=== PATIENT | male | born 1985 ===

== ENCOUNTER 2017-03-05 15:48 | Inpatient (IN) | payer OTHER ==
[2017-03-05] MEDS ORDERED: Sodium Chloride 0.9% 1,000 ML IV STA ×2 (16:23→17:26)
--- NOTE | 2017-03-05 16:39 | ED PDOC ---
HPI: General Adult Time Seen by Provider: 03/05/17 16:05 Chief Complaint (Nursing): Flu-like Symptoms Chief Complaint (Provider): Fever History Per: Patient History/Exam Limitations: no limitations Onset/Duration Of Symptoms: Intermittent Episodes (3 weeks) Current Symptoms Are (Timing): Still Present Additional Complaint(s): Yusef Doshi is a 31 y/o male, with no past medical history, presenting to the ER on 03/05/2017 with complaints of an intermittent fever for three weeks associated with a productive cough that produces yellow sputum. Patient states these two symptoms have not resolved despite taking Advil. He also reports having myalgias, fatigue, and throat pain last week which all have resolved on its own. Patient is also complaining of upper back pain when he takes deep breaths. He denies any recent travel, known history of tuberculosis, or any possible exposure to tuberculosis in the past. Past Medical History Reviewed: Historical Data, Nursing Documentation, Vital Signs Vital Signs: Last Vital Signs Temp 99.3 F 03/05/17 17:40 Pulse 88 03/05/17 17:28 Resp 18 03/05/17 15:58 BP 152/87 H 03/05/17 15:58 Pulse Ox 98 03/05/17 17:28 - Medical History PMH: No Chronic Diseases - Surgical History Surgical History: No Surg Hx - Family History Family History: States: Unknown Family Hx - Social History Current smoker - smoking cessation education provided: No Alcohol: None Drugs: Denies - Home Medications Home Medications: Ambulatory Orders Medication Instructions Recorded No Known Home Med 03/05/17 - Allergies Allergies/Adverse Reactions: Allergies Allergy/AdvReac Type Severity Reaction Status Date / Time No Known Allergies Allergy Verified 03/05/17 15:57 Review of Systems ROS Statement: Except As Marked, All Systems Reviewed And Found Negative Constitutional: Positive for: Fever, Other ((+) myalgias ; (+) fatigue ) ENT: Positive for: Throat Pain Respiratory: Positive for: Cough, Sputum Musculoskeletal: Positive for: Back Pain Neurological: Negative for: Weakness, Numbness Physical Exam - Reviewed Nursing Documentation Reviewed: Yes Vital Signs Reviewed: Yes - Physical Exam Appears: Positive for: Non-toxic, No Acute Distress Head Exam: Positive for: ATRAUMATIC, NORMOCEPHALIC Skin: Positive for: Normal Color. Negative for: Rash Eye Exam: Positive for: Normal appearance, EOMI, PERRL ENT: Positive for: Normal ENT Inspection, Pharynx Is (clear), TM Is/Are (normal ). Negative for: Pharyngeal Erythema Neck: Positive for: Normal, Painless ROM, Supple Cardiovascular/Chest: Positive for: Tachycardia Respiratory: Positive for: Normal Breath Sounds. Negative for: Respiratory Distress Gastrointestinal/Abdominal: Positive for: Normal Exam, Soft. Negative for: Tenderness Extremity: Positive for: Normal ROM. Negative for: Deformity, Swelling Neurologic/Psych: Positive for: Alert, Oriented. Negative for: Motor/Sensory Deficits - Laboratory Results Result Diagrams: 03/05/17 16:20 03/05/17 16:20 - ECG ECG: Positive for: Interpreted By Me, Viewed By Me ECG Rhythm: Positive for: Normal QRS, Normal ST Segment, Sinus Rhythm. Negative for: Nonspecific Changes Rate: 88 O2 Sat by Pulse Oximetry: 98 - Radiology X-Ray: Viewed By Me, Read By Radiologist X-Ray Interpretation: No Acute Disease Medical Decision Making Medical Decision Makin:05 Initial Impression- Respiratory Infection. Differential diagnosis includes but not limited to: PNA, Bronchitis, or Influenza Initial Plan- * VBG * EKG * CMP * Tylenol 650 mg PO * Toradol 30 mg IVP * Sodium Chloride 1,000 ml IV * Blood Cx * Influenza AB Documented by José Antonio Palafox, acting as a scribe for Michaelle Rob MD. All medical record entries made by the Scribe were at my direction and personally dictated by me. I have reviewed the chart and agree that the record accurately reflects my personal performance of the history, physical exam, medical decision making, and the department course for this patient. I have also personally directed, reviewed, and agree with the discharge instructions and disposition. Disposition - Clinical Impression Clinical Impression: Pneumonia, Influenza-like symptoms, Severe sepsis - Patient ED Disposition Is Patient to be Admitted: Yes Discussed With : Rashawn Gracia Doctor Will See Patient In The: ED Counseled Patient/Family Regarding: Studies Performed, Diagnosis - Disposition Disposition Time: 18:00 Condition: FAIR - Pt Status Changed To: Hospital Disposition Of: Inpatient - Admit Certification Admit to Inpatient:: After my assessment, the patient will require hospitalization for at least two midnights. This is because of the severity of symptoms shown, intensity of services needed, and/or the medical risk in this patient being treated as an outpatient. - POA Present On Arrival: Poor Glycemic Control
[2017-03-05 17:15] LABS: BASO # 0.2 K/uL (0.0-0.2); EOS % 0.1 % (0.0-4.0); LYMPH # 21.9 K/uL (1.0-4.3); LYMPH % 94.5 % (20.0-40.0); MEAN CELL VOLUME 90.1 fl (80.0-94.0); MEAN CORPUSCULAR HGB CONC 33.3 g/dL (33.0-37.0); MEAN PLATELET VOLUME 9.1 fl (7.2-11.7); MONO # 0.2 K/uL (0.0-0.8); MONO % 1.1 % (0.0-10.0); NEUT # 0.8 K/uL (1.8-7.0); NEUT % 3.3 % (50.0-75.0); NRBC % 0.5 % (0.0-0.0); PLATELET COUNT 62 K/uL (130-400); RBC 3.99 Mil/uL (4.40-5.90); RED CELL DISTRIBUTION WIDTH 14.7 % (11.5-14.5); WHITE BLOOD COUNT 23.2 K/uL (4.8-10.8)
[2017-03-05 17:15] LABS: VENOUS BLOOD GAS BASE EXCESS 2.7 mmol/L (0.0-2.0); VENOUS BLOOD GAS PCO2 44 mmHg (40-60); VENOUS BLOOD GAS PO2 31 mm/Hg (30-55); VENOUS BLOOD PH 7.41 (7.32-7.43)
[2017-03-05] MEDS ORDERED: Insulin Regular 100 units/ml IV STA (17:23)
[2017-03-05] MEDS ORDERED: Azithromycin 500 MG in Sodium Chloride 0.9% 250 ML IVPB STA (17:25)
--- NOTE | 2017-03-05 17:26 | RAD ---
HISTORY: Chest pain COMPARISON: No prior. TECHNIQUE: Chest PA and lateral FINDINGS: LUNGS: The lungs are clear. PLEURA: No significant pleural effusion identified. No pneumothorax apparent. CARDIOVASCULAR: Normal. OSSEOUS STRUCTURES: No significant abnormalities. VISUALIZED UPPER ABDOMEN: Normal. OTHER FINDINGS: None. IMPRESSION: No active pulmonary disease.
[2017-03-05 17:31] LABS: ALB/GLOB RATIO 1.1 (1.0-2.1); ALBUMIN 3.8 g/dL (3.5-5.0); ALT/SGPT 169 U/L (21-72); AST/SGOT 94 U/L (17-59); BLOOD UREA NITROGEN 10 mg/dl (9-20); CALCIUM 8.8 mg/dL (8.4-10.2); GFR AFRICAN-AMERICAN > 60; GFR NON-AFRICAN AMERICAN > 60
[2017-03-05] MEDS ORDERED: cefTRIAXone (Rocephin) 1 gm Inj ONE (17:31)
[2017-03-05 18:05] LABS: ABG ALLEN TEST YES; ARTERIAL BLOOD GAS HCO3 27.2 mmol/L (21-28); ARTERIAL BLOOD GAS HEMOGLOBIN 10.8 g/dL (11.7-17.4); ARTERIAL BLOOD GAS O2 CAPACITY 14.7 mL/dL (16-24); ARTERIAL BLOOD GAS O2 CONTENT 14.5 ML/dL (15-23); ARTERIAL BLOOD GAS O2 SAT 98.4 % (95-98); ARTERIAL BLOOD GAS PCO2 38 mm/Hg (35-45); ARTERIAL BLOOD GAS PH 7.46 (7.35-7.45); ARTERIAL BLOOD GAS PO2 76 mm/Hg (80-100); ARTERIAL BLOOD GAS TCO2 28.2 mmol/L (22-28)
[2017-03-05] MEDS ORDERED: Insulin Regular 100 units/ml ONE (18:23)
[2017-03-05 18:28] LABS: TOTAL CELLS COUNTED 100
[2017-03-05] MEDS ORDERED: Sodium Chloride 3% for Inhalation 4 ML VIAL.NEB IH PRN (18:28)
[2017-03-05 18:29] LABS: LYMPHOCYTE 63 % (20-50); MONOCYTE 2 % (0-10); NEUTROPHIL 5 % (42-75); REACTIVE LYMPHOCYTES 30 % (0-0)
[2017-03-05 18:30] LABS: ANISOCYTOSIS SLIGHT; PLATELET ESTIMATE MARKEDLY DECREASED (NORMAL); POLYCHROMIC SLIGHT
[2017-03-05 18:31] LABS: SMUDGE CELLS PRESENT
--- NOTE | 2017-03-05 18:50 | CP.PCM.HP ---
History of Present Illness - History of Present Illness History of Present Illness: 31 yo male with no significant PMH came in because of on and off fever since 3 weeks ago accompanied with body malaise and coughing productive with greenish sputum. Saw a PCP a week ago and was started on antibiotics which he took twice a day. He was only able to take the antibiotic for 4 days but stopped it since he was not getting any better and it did not agree with his stomach. His condition did not improved so he decided to seek consultation in the ER. Also admitted urinating a lot and drinking a lot recently. Denied dysuria, abdominal pain, nausea or vomiting. Present on Admission - Present on Admission Any Indicators Present on Admission: No History of DVT/PE: No History of Uncontrolled Diabetes: No Urinary Catheter: No Decubitus Ulcer Present: No Review of Systems - Review of Systems All systems: reviewed and no additional remarkable complaints except (aside from those mentioned above, 12 point system review were negative by me) Past Patient History - Tetanus Immunizations Tetanus Immunization: Unknown - Past Medical History & Family History Past Medical History?: No Pertinent Family History: mother has DM2 - Past Social History Smoking Status: Never Smoked Alcohol: None Drugs: Denies Home Situation {Lives}: With Family - CARDIAC Hx Cardiac Disorders: No - PULMONARY Hx Respiratory Disorders: No - NEUROLOGICAL Hx Neurological Disorder: No - HEENT Hx HEENT Problems: No - RENAL Hx Chronic Kidney Disease: No - ENDOCRINE/METABOLIC Hx Endocrine Disorders: No - HEMATOLOGICAL/ONCOLOGICAL Hx Blood Disorders: No - INTEGUMENTARY Hx Dermatological Problems: Yes Other/Comment: FUNGAL/BACTERIAL SKIN INFECTION - MUSCULOSKELETAL/RHEUMATOLOGICAL Hx Musculoskeletal Disorders: No - GASTROINTESTINAL Hx Gastrointestinal Disorders: No - GENITOURINARY/GYNECOLOGICAL Hx Genitourinary Disorders: No - PSYCHIATRIC Hx Psychophysiologic Disorder: No Hx Substance Use: No - SURGICAL HISTORY Hx Surgeries: No - ANESTHESIA Hx Anesthesia: No Meds Allergies/Adverse Reactions: Allergies Allergy/AdvReac Type Severity Reaction Status Date / Time No Known Allergies Allergy Verified 03/05/17 15:57 Physical Exam - Constitutional Appears: No Acute Distress - Head Exam Head Exam: ATRAUMATIC - Eye Exam Eye Exam: absent: Scleral icterus - ENT Exam ENT Exam: Mucous Membranes Moist - Neck Exam Neck exam: Negative for: Meningismus - Respiratory Exam Respiratory Exam: absent: Rhonchi, Wheezes, Respiratory Distress - Cardiovascular Exam Cardiovascular Exam: REGULAR RHYTHM, +S1, +S2 - GI/Abdominal Exam GI & Abdominal Exam: Soft. absent: Tenderness - Rectal Exam Rectal Exam: Deferred - Extremities Exam Extremities exam: Negative for: calf tenderness, pedal edema - Back Exam Back exam: NORMAL INSPECTION - Neurological Exam Neurological exam: Alert, Oriented x3 - Psychiatric Exam Psychiatric exam: Normal Affect - Skin Skin Exam: Diaphoretic Results - Vital Signs Recent Vital Signs: Last Vital Signs Temp 99.3 F 03/05/17 17:40 Pulse 88 03/05/17 17:28 Resp 18 03/05/17 15:58 BP 152/87 H 03/05/17 15:58 Pulse Ox 98 03/05/17 17:28 - Labs Result Diagrams: 03/05/17 16:20 03/05/17 16:20 Labs: Laboratory Results - last 24 hr 03/05/17 03/05/17 03/05/17 16:20 16:20 16:27 WBC 23.2 H RBC 3.99 L Hgb 12.0 Hct 36.0 MCV 90.1 MCH 30.0 MCHC 33.3 RDW 14.7 H Plt Count 62 L MPV 9.1 Neut % (Auto) 3.3 L Lymph % (Auto) 94.5 H [place] % (Auto) 1.1 Eos % (Auto) 0.1 Baso % (Auto) 1.0 Neut # 0.8 L Lymph # 21.9 H [place] # 0.2 Eos # 0.0 Baso # 0.2 Neutrophils % (Manual) 5 L Lymphocytes % (Manual) 63 H Reactive Lymphs % 30 H Monocytes % (Manual) 2 Smudge Cells Present Platelet Estimate Markedly decreased L Polychromasia Slight Anisocytosis (manual) Slight pCO2 pO2 HCO3 ABG pH ABG Total CO2 ABG O2 Saturation ABG O2 Content ABG Base Excess ABG Hemoglobin ABG Carboxyhemoglobin POC ABG HHb (Measured) ABG Methemoglobin ABG O2 Capacity Constantino Test VBG pH VBG pCO2 VBG HCO3 VBG Total CO2 VBG O2 Sat (Calc) VBG Base Excess VBG Potassium A-a O2 Difference Hgb O2 Saturation Glucose Lactate FiO2 Crit Value Called To Crit Value Called By Crit Value Read Back Blood Gas Notified Time Sodium 133 Potassium 4.0 Chloride 99 Carbon Dioxide 25 Anion Gap 14 BUN 10 Creatinine 0.6 L Est GFR ( Amer) > 60 Est GFR (Non-Af Amer) > 60 Random Glucose 448 H* Calcium 8.8 Total Bilirubin 0.7 AST 94 H ALT 169 H Alkaline Phosphatase 110 Total Protein 7.2 Albumin 3.8 Globulin 3.5 Albumin/Globulin Ratio 1.1 Venous Blood Potassium Influenza Typ A,B (EIA) Negative for flu a/b 03/05/17 03/05/17 17:00 17:50 WBC RBC Hgb Hct MCV MCH MCHC RDW Plt Count MPV Neut % (Auto) Lymph % (Auto) [place] % (Auto) Eos % (Auto) Baso % (Auto) Neut # Lymph # [place] # Eos # Baso # Neutrophils % (Manual) Lymphocytes % (Manual) Reactive Lymphs % Monocytes % (Manual) Smudge Cells Platelet Estimate Polychromasia Anisocytosis (manual) pCO2 38 pO2 31 76 L HCO3 27.2 ABG pH 7.46 H ABG Total CO2 28.2 H ABG O2 Saturation 98.4 H ABG O2 Content 14.5 L ABG Base Excess 3.0 ABG Hemoglobin 10.8 L ABG Carboxyhemoglobin 2.0 H POC ABG HHb (Measured) 1.5 ABG Methemoglobin 1.5 ABG O2 Capacity 14.7 L Constantino Test Yes VBG pH 7.41 VBG pCO2 44 VBG HCO3 26.0 VBG Total CO2 29.3 H VBG O2 Sat (Calc) 65.8 H VBG Base Excess 2.7 H VBG Potassium 4.0 A-a O2 Difference 26.0 Hgb O2 Saturation 95.0 Glucose 468 H* Lactate 2.4 H FiO2 21.0 21.0 Crit Value Called To Dr camacho Crit Value Called By Rt Crit Value Read Back Y Blood Gas Notified Time 1714 Sodium 132.0 Potassium Chloride 97.0 L Carbon Dioxide Anion Gap BUN Creatinine Est GFR ( Amer) Est GFR (Non-Af Amer) Random Glucose Calcium Total Bilirubin AST ALT Alkaline Phosphatase Total Protein Albumin Globulin Albumin/Globulin Ratio Venous Blood Potassium 4.0 Influenza Typ A,B (EIA) Assessment & Plan (1) Sepsis Status: Acute Comment: admit to telemetry. blood culture x 2. sputum culture. urinalysis and urine C&S. continue Rocephin and Zithromax. IV hydration with NSS 200cc/ hr (2) Bronchitis Status: Acute Comment: continue IV Rocephin and Zithromax. Tylenol 650mg PO q 4hrs prn for fever (3) New onset type 2 diabetes mellitus Status: Acute Comment: HgA1C and BMP in am. accuchek ACHS with Lispro coverage. Metformin 500mg PO q 12hrs
[2017-03-05] MEDS: Sodium Chloride 0.9% 1,000 ML IV SCH (19:58)
[2017-03-05 20:19] LABS: SQUAMOUS EPITHIAL 1 /hpf (0-5); URINE BILIRUBIN NEGATIVE (NEGATIVE); URINE BLOOD NEGATIVE (NEGATIVE); URINE CLARITY CLEAR (Clear); URINE COLOR AMBER (YELLOW); URINE GLUCOSE (UA) >=500 mg/dL (Normal); URINE LEUKOCYTE ESTERASE NEG Leu/uL (Negative); URINE NITRATE NEGATIVE (NEGATIVE); URINE PROTEIN 30 mg/dL (NEGATIVE); URINE UROBILINOGEN 0.2-1.0 mg/dL (0.2-1.0)
[2017-03-05 20:45] LABS: VENOUS BLOOD GAS BASE EXCESS 1.3 mmol/L (0.0-2.0); VENOUS BLOOD GAS PCO2 40 mmHg (40-60); VENOUS BLOOD GAS PO2 52 mm/Hg (30-55); VENOUS BLOOD PH 7.42 (7.32-7.43)
[2017-03-05] MEDS: Insulin Lispro (humaLOG) 100 Units/ml Inj SC SCH (23:43)
[2017-03-06] MEDS: Sodium Chloride 0.9% 1,000 ML IV SCH ×4 (01:03→21:11)
[2017-03-06] MEDS ORDERED: Pneumococcal 23-Valent Vaccine IM ONE (06:00)
[2017-03-06 07:23] LABS: BASO # 0.3 K/uL (0.0-0.2); BASO % 1.3 % (0.0-2.0); EOS % 0.2 % (0.0-4.0); LYMPH # 21.1 K/uL (1.0-4.3); LYMPH % 91.6 % (20.0-40.0); MEAN CELL VOLUME 90.9 fl (80.0-94.0); MEAN CORPUSCULAR HEMOGLOBIN 30.1 pg (27.0-31.0); MEAN CORPUSCULAR HGB CONC 33.2 g/dL (33.0-37.0); MONO # 0.7 K/uL (0.0-0.8); MONO % 3.1 % (0.0-10.0); NEUT # 0.9 K/uL (1.8-7.0); NEUT % 3.8 % (50.0-75.0); NRBC % 0.2 % (0.0-0.0); RBC 3.64 Mil/uL (4.40-5.90); RED CELL DISTRIBUTION WIDTH 14.8 % (11.5-14.5)
[2017-03-06 08:05] LABS: BLOOD UREA NITROGEN 12 mg/dl (9-20); CALCIUM 8.6 mg/dL (8.4-10.2); GFR AFRICAN-AMERICAN > 60; GFR NON-AFRICAN AMERICAN > 60; HDL CHOLESTEROL 15 MG/DL (30-70)
[2017-03-06 08:16] LABS: LDL CHOLESTEROL 54 mg/dL (0-129)
[2017-03-06] MEDS ORDERED: Enoxaparin 40 mg Syringe SC SCH (09:00)
[2017-03-06] MEDS: Insulin Lispro (humaLOG) 100 Units/ml Inj SC SCH ×4 (09:11→22:28)
[2017-03-06] MEDS: Azithromycin 500 MG in Sodium Chloride 0.9% 250 ML IVPB SCH (09:16)
--- NOTE | 2017-03-06 11:00 | CP.PCM.CON ---
History of Present Illness - History of Present Illness History of Present Illness: Infectious Disease Consult note- asked to see this patient at the request of the hospitalist for fever and leukocytosis. HPI- Patient is a 31 year old female with no PMH who came to hospital with c/o intermittent fevers for past 3 weeks along with bodyaches and cough productive of yellow to light green phlegm. He also mentions that about a week ago he had gone to local clinic bc he had developed 2 lesions on his Left lower leg that looked infected and he was given amoxicillin for them and that has improved. He states he tried to squeeze the lesion himself and he had scant yellow discharge from it but that was it. pt. denies any PMH and states he was only told during this hospitalization that he has High gluycose. He denies any recent travel, denies any sick contacts Review of Systems - Review of Systems Review of Systems: ROS- intermittent fever for past 3 weeks along with bodyaches and malaise, denies any joint pain, denies any RIVERA , denies any vision changes, denies any neck pain , denies any sob but sattes has been having cough with light green phlegm,d enies any chest pain, denies any anb pain, denies any dysurea, denies any diarrhea, denies any n/v 2 ? infected LLE lesions that have since improved on outpatient abx, he also states he feels like he has area of inflamamtion on the lower part of the back of his scalp for past few weeks but no lesions . denies any travel denies any sick contacts Past Patient History - Tetanus Immunizations Tetanus Immunization: Unknown - Past Medical History & Family History Past Medical History?: Yes - Past Social History Smoking Status: Never Smoked - CARDIAC Hx Cardiac Disorders: No - PULMONARY Hx Respiratory Disorders: No - NEUROLOGICAL Hx Neurological Disorder: No - HEENT Hx HEENT Problems: No - RENAL Hx Chronic Kidney Disease: No - ENDOCRINE/METABOLIC Hx Endocrine Disorders: No - HEMATOLOGICAL/ONCOLOGICAL Hx Blood Disorders: No - INTEGUMENTARY Hx Dermatological Problems: Yes Other/Comment: FUNGAL INFECTION SCALP AND LEFT LEG - MUSCULOSKELETAL/RHEUMATOLOGICAL Hx Musculoskeletal Disorders: No Hx Falls: No - GASTROINTESTINAL Hx Gastrointestinal Disorders: No - GENITOURINARY/GYNECOLOGICAL Hx Genitourinary Disorders: No - PSYCHIATRIC Hx Psychophysiologic Disorder: No Hx Substance Use: No - SURGICAL HISTORY Hx Surgeries: No - ANESTHESIA Hx Anesthesia: No Hx Anesthesia Reactions: No Hx Malignant Hyperthermia: No Meds Allergies/Adverse Reactions: Allergies Allergy/AdvReac Type Severity Reaction Status Date / Time No Known Allergies Allergy Verified 03/05/17 15:57 - Medications Medications: Current Medications Acetaminophen (Tylenol 325mg Tab) 650 mg PO Q4 PRN PRN Reason: Fever >100.4 F Acetaminophen (Tylenol 325mg Tab) 650 mg PO Q6 PRN PRN Reason: Pain, moderate (4-7) Last Admin: 03/06/17 03:53 Dose: 650 mg Famotidine (Pepcid) 20 mg PO BID [facility] Last Admin: 03/06/17 09:14 Dose: 20 mg Sodium Chloride (Sodium Chloride 0.9%) 1,000 mls @ 200 mls/hr IV .Q5H [facility] Last Admin: 03/06/17 05:54 Dose: 200 mls/hr Ceftriaxone Sodium 1 gm/ (Sodium Chloride) 100 mls @ 100 mls/hr IVPB DAILY [facility] Last Admin: 03/06/17 09:15 Dose: 100 mls/hr Azithromycin 500 mg/ Sodium (Chloride) 250 mls @ 250 mls/hr IVPB DAILY [facility] Last Admin: 03/06/17 09:16 Dose: 250 mls/hr Insulin Human Lispro (Humalog) 0 units SC ACHS [facility] PRN Reason: Protocol Last Admin: 03/06/17 09:11 Dose: 3 u Physical Exam - Constitutional Appears: Non-toxic, No Acute Distress - Head Exam Head Exam: ATRAUMATIC - Eye Exam Eye Exam: EOMI, PERRL - ENT Exam ENT Exam: Normal Oropharynx - Neck Exam Neck exam: Positive for: Full Rom Additional comments: supple no lesions noted on back of scalp and symmetrical both sides - Respiratory Exam Respiratory Exam: Clear to Auscultation Bilateral, NORMAL BREATHING PATTERN - Cardiovascular Exam Cardiovascular Exam: RRR, +S1, +S2 - GI/Abdominal Exam GI & Abdominal Exam: Normal Bowel Sounds, Soft Additional comments: NT, ND - Extremities Exam Additional comments: no edema b/L LE LLE with 2 round dried lesiosna bout 5 x 6 cm one on the front and one on the lateral side of the LLE, central nome with surrounding darker region but no fluctuance, no tenderness, no ertyeham seems like old infection , no discharge - Neurological Exam Neurological exam: Alert, Oriented x3 Results - Vital Signs Recent Vital Signs: Last Vital Signs Temp 97.8 F 03/06/17 08:00 Pulse 63 03/06/17 08:00 Resp 20 03/06/17 08:00 BP 123/71 03/06/17 08:00 Pulse Ox 97 03/06/17 08:00 - Labs Result Diagrams: 03/06/17 06:35 03/06/17 06:35 Labs: Laboratory Results - last 24 hr 03/05/17 03/05/17 03/05/17 19:44 20:07 20:38 WBC RBC Hgb Hct MCV MCH MCHC RDW Plt Count MPV Neut % (Auto) Lymph % (Auto) [place] % (Auto) Eos % (Auto) Baso % (Auto) Neut # Lymph # [place] # Eos # Baso # pO2 52 VBG pH 7.42 VBG pCO2 40 VBG HCO3 25.7 VBG Total CO2 27.1 VBG O2 Sat (Calc) 92.8 H VBG Base Excess 1.3 VBG Potassium 4.4 Sodium 125.0 L Chloride 95.0 L Glucose 276 H Lactate 1.1 FiO2 21.0 Potassium Carbon Dioxide Anion Gap BUN Creatinine Est GFR ( Amer) Est GFR (Non-Af Amer) POC Glucose (mg/dL) 288 H Random Glucose Calcium Triglycerides Cholesterol LDL Cholesterol Direct HDL Cholesterol TSH 3rd Generation Venous Blood Potassium 4.4 Urine Color Audrey Urine Clarity Clear Urine pH 6.0 Ur Specific [place] 1.053 H Urine Protein 30 Urine Glucose (UA) >=500 Urine Ketones Negative Urine Blood Negative Urine Nitrate Negative Urine Bilirubin Negative Urine Urobilinogen 0.2-1.0 Ur Leukocyte Esterase Neg Urine RBC (Auto) 3 Urine Microscopic WBC 1 Ur Squamous Epith Cells 1 03/06/17 03/06/17 03/06/17 05:31 06:35 06:35 WBC 23.0 H RBC 3.64 L Hgb 11.0 L Hct 33.1 L MCV 90.9 MCH 30.1 MCHC 33.2 RDW 14.8 H Plt Count 53 L MPV 9.0 Neut % (Auto) 3.8 L Lymph % (Auto) 91.6 H [place] % (Auto) 3.1 Eos % (Auto) 0.2 Baso % (Auto) 1.3 Neut # 0.9 L Lymph # 21.1 H [place] # 0.7 Eos # 0.0 Baso # 0.3 H pO2 VBG pH VBG pCO2 VBG HCO3 VBG Total CO2 VBG O2 Sat (Calc) VBG Base Excess VBG Potassium Sodium 141 Chloride 106 Glucose Lactate FiO2 Potassium 4.1 Carbon Dioxide 28 Anion Gap 12 BUN 12 Creatinine 0.6 L Est GFR ( Amer) > 60 Est GFR (Non-Af Amer) > 60 POC Glucose (mg/dL) 249 H Random Glucose 208 H Calcium 8.6 Triglycerides 219 H Cholesterol 107 LDL Cholesterol Direct 54 HDL Cholesterol 15 L TSH 3rd Generation 5.19 H Venous Blood Potassium Urine Color Urine Clarity Urine pH Ur Specific [place] Urine Protein Urine Glucose (UA) Urine Ketones Urine Blood Urine Nitrate Urine Bilirubin Urine Urobilinogen Ur Leukocyte Esterase Urine RBC (Auto) Urine Microscopic WBC Ur Squamous Epith Cells Laboratory Results - last 72 hr 03/05/17 03/05/17 03/05/17 16:20 16:20 16:27 WBC 23.2 H RBC 3.99 L Hgb 12.0 Hct 36.0 MCV 90.1 MCH 30.0 MCHC 33.3 RDW 14.7 H Plt Count 62 L MPV 9.1 Neut % (Auto) 3.3 L Lymph % (Auto) 94.5 H [place] % (Auto) 1.1 Eos % (Auto) 0.1 Baso % (Auto) 1.0 Neut # 0.8 L Lymph # 21.9 H [place] # 0.2 Eos # 0.0 Baso # 0.2 Neutrophils % (Manual) 5 L Lymphocytes % (Manual) 63 H Reactive Lymphs % 30 H Monocytes % (Manual) 2 Smudge Cells Present Platelet Estimate Markedly decreased L Polychromasia Slight Anisocytosis (manual) Slight Smear Path Review pCO2 pO2 HCO3 ABG pH ABG Total CO2 ABG O2 Saturation ABG O2 Content ABG Base Excess ABG Hemoglobin ABG Carboxyhemoglobin POC ABG HHb (Measured) ABG Methemoglobin ABG O2 Capacity Constantino Test VBG pH VBG pCO2 VBG HCO3 VBG Total CO2 VBG O2 Sat (Calc) VBG Base Excess VBG Potassium A-a O2 Difference Hgb O2 Saturation Glucose Lactate FiO2 Crit Value Called To Crit Value Called By Crit Value Read Back Blood Gas Notified Time Sodium 133 Potassium 4.0 Chloride 99 Carbon Dioxide 25 Anion Gap 14 BUN 10 Creatinine 0.6 L Est GFR ( Amer) > 60 Est GFR (Non-Af Amer) > 60 POC Glucose (mg/dL) Random Glucose 448 H* Hemoglobin A1c Calcium 8.8 Total Bilirubin 0.7 AST 94 H ALT 169 H Alkaline Phosphatase 110 Total Protein 7.2 Albumin 3.8 Globulin 3.5 Albumin/Globulin Ratio 1.1 Triglycerides Cholesterol LDL Cholesterol Direct HDL Cholesterol TSH 3rd Generation Venous Blood Potassium Urine Color Urine Clarity Urine pH Ur Specific [place] Urine Protein Urine Glucose (UA) Urine Ketones Urine Blood Urine Nitrate Urine Bilirubin Urine Urobilinogen Ur Leukocyte Esterase Urine RBC (Auto) Urine Microscopic WBC Ur Squamous Epith Cells Influenza Typ A,B (EIA) Negative for flu a/b 03/05/17 03/05/17 03/05/17 17:00 17:50 19:44 WBC RBC Hgb Hct MCV MCH MCHC RDW Plt Count MPV Neut % (Auto) Lymph % (Auto) [place] % (Auto) Eos % (Auto) Baso % (Auto) Neut # Lymph # [place] # Eos # Baso # Neutrophils % (Manual) Lymphocytes % (Manual) Reactive Lymphs % Monocytes % (Manual) Smudge Cells Platelet Estimate Polychromasia Anisocytosis (manual) Smear Path Review pCO2 38 pO2 31 76 L HCO3 27.2 ABG pH 7.46 H ABG Total CO2 28.2 H ABG O2 Saturation 98.4 H ABG O2 Content 14.5 L ABG Base Excess 3.0 ABG Hemoglobin 10.8 L ABG Carboxyhemoglobin 2.0 H POC ABG HHb (Measured) 1.5 ABG Methemoglobin 1.5 ABG O2 Capacity 14.7 L Constantino Test Yes VBG pH 7.41 VBG pCO2 44 VBG HCO3 26.0 VBG Total CO2 29.3 H VBG O2 Sat (Calc) 65.8 H VBG Base Excess 2.7 H VBG Potassium 4.0 A-a O2 Difference 26.0 Hgb O2 Saturation 95.0 Glucose 468 H* Lactate 2.4 H FiO2 21.0 21.0 Crit Value Called To Dr camacho Crit Value Called By Rt Crit Value Read Back Y Blood Gas Notified Time 1714 Sodium 132.0 Potassium Chloride 97.0 L Carbon Dioxide Anion Gap BUN Creatinine Est GFR ( Amer) Est GFR (Non-Af Amer) POC Glucose (mg/dL) 288 H Random Glucose Hemoglobin A1c Calcium Total Bilirubin AST ALT Alkaline Phosphatase Total Protein Albumin Globulin Albumin/Globulin Ratio Triglycerides Cholesterol LDL Cholesterol Direct HDL Cholesterol TSH 3rd Generation Venous Blood Potassium 4.0 Urine Color Urine Clarity Urine pH Ur Specific [place] Urine Protein Urine Glucose (UA) Urine Ketones Urine Blood Urine Nitrate Urine Bilirubin Urine Urobilinogen Ur Leukocyte Esterase Urine RBC (Auto) Urine Microscopic WBC Ur Squamous Epith Cells Influenza Typ A,B (EIA) 03/05/17 03/05/17 03/06/17 20:07 20:38 05:31 WBC RBC Hgb Hct MCV MCH MCHC RDW Plt Count MPV Neut % (Auto) Lymph % (Auto) [place] % (Auto) Eos % (Auto) Baso % (Auto) Neut # Lymph # [place] # Eos # Baso # Neutrophils % (Manual) Lymphocytes % (Manual) Reactive Lymphs % Monocytes % (Manual) Smudge Cells Platelet Estimate Polychromasia Anisocytosis (manual) Smear Path Review pCO2 pO2 52 HCO3 ABG pH ABG Total CO2 ABG O2 Saturation ABG O2 Content ABG Base Excess ABG Hemoglobin ABG Carboxyhemoglobin POC ABG HHb (Measured) ABG Methemoglobin ABG O2 Capacity Constantino Test VBG pH 7.42 VBG pCO2 40 VBG HCO3 25.7 VBG Total CO2 27.1 VBG O2 Sat (Calc) 92.8 H VBG Base Excess 1.3 VBG Potassium 4.4 A-a O2 Difference Hgb O2 Saturation Glucose 276 H Lactate 1.1 FiO2 21.0 Crit Value Called To Crit Value Called By Crit Value Read Back Blood Gas Notified Time Sodium 125.0 L Potassium Chloride 95.0 L Carbon Dioxide Anion Gap BUN Creatinine Est GFR ( Amer) Est GFR (Non-Af Amer) POC Glucose (mg/dL) 249 H Random Glucose Hemoglobin A1c Calcium Total Bilirubin AST ALT Alkaline Phosphatase Total Protein Albumin Globulin Albumin/Globulin Ratio Triglycerides Cholesterol LDL Cholesterol Direct HDL Cholesterol TSH 3rd Generation Venous Blood Potassium 4.4 Urine Color Audrey Urine Clarity Clear Urine pH 6.0 Ur Specific [place] 1.053 H Urine Protein 30 Urine Glucose (UA) >=500 Urine Ketones Negative Urine Blood Negative Urine Nitrate Negative Urine Bilirubin Negative Urine Urobilinogen 0.2-1.0 Ur Leukocyte Esterase Neg Urine RBC (Auto) 3 Urine Microscopic WBC 1 Ur Squamous Epith Cells 1 Influenza Typ A,B (EIA) 0703/06/17 03/06/17 06:35 06:35 06:35 WBC 23.0 H RBC 3.64 L Hgb 11.0 L Hct 33.1 L MCV 90.9 MCH 30.1 MCHC 33.2 RDW 14.8 H Plt Count 53 L MPV 9.0 Neut % (Auto) 3.8 L Lymph % (Auto) 91.6 H [place] % (Auto) 3.1 Eos % (Auto) 0.2 Baso % (Auto) 1.3 Neut # 0.9 L Lymph # 21.1 H [place] # 0.7 Eos # 0.0 Baso # 0.3 H Neutrophils % (Manual) Lymphocytes % (Manual) Reactive Lymphs % Monocytes % (Manual) Smudge Cells Platelet Estimate Polychromasia Anisocytosis (manual) Smear Path Review pCO2 pO2 HCO3 ABG pH ABG Total CO2 ABG O2 Saturation ABG O2 Content ABG Base Excess ABG Hemoglobin ABG Carboxyhemoglobin POC ABG HHb (Measured) ABG Methemoglobin ABG O2 Capacity Constantino Test VBG pH VBG pCO2 VBG HCO3 VBG Total CO2 VBG O2 Sat (Calc) VBG Base Excess VBG Potassium A-a O2 Difference Hgb O2 Saturation Glucose Lactate FiO2 Crit Value Called To Crit Value Called By Crit Value Read Back Blood Gas Notified Time Sodium 141 Potassium 4.1 Chloride 106 Carbon Dioxide 28 Anion Gap 12 BUN 12 Creatinine 0.6 L Est GFR ( Amer) > 60 Est GFR (Non-Af Amer) > 60 POC Glucose (mg/dL) Random Glucose 208 H Hemoglobin A1c 17.1 H Calcium 8.6 Total Bilirubin AST ALT Alkaline Phosphatase Total Protein Albumin Globulin Albumin/Globulin Ratio Triglycerides 219 H Cholesterol 107 LDL Cholesterol Direct 54 HDL Cholesterol 15 L TSH 3rd Generation 5.19 H Venous Blood Potassium Urine Color Urine Clarity Urine pH Ur Specific [place] Urine Protein Urine Glucose (UA) Urine Ketones Urine Blood Urine Nitrate Urine Bilirubin Urine Urobilinogen Ur Leukocyte Esterase Urine RBC (Auto) Urine Microscopic WBC Ur Squamous Epith Cells Influenza Typ A,B (EIA) 03/06/17 11:54 WBC RBC Hgb Hct MCV MCH MCHC RDW Plt Count MPV Neut % (Auto) Lymph % (Auto) [place] % (Auto) Eos % (Auto) Baso % (Auto) Neut # Lymph # [place] # Eos # Baso # Neutrophils % (Manual) Lymphocytes % (Manual) Reactive Lymphs % Monocytes % (Manual) Smudge Cells Platelet Estimate Polychromasia Anisocytosis (manual) Smear Path Review pCO2 pO2 HCO3 ABG pH ABG Total CO2 ABG O2 Saturation ABG O2 Content ABG Base Excess ABG Hemoglobin ABG Carboxyhemoglobin POC ABG HHb (Measured) ABG Methemoglobin ABG O2 Capacity Constantino Test VBG pH VBG pCO2 VBG HCO3 VBG Total CO2 VBG O2 Sat (Calc) VBG Base Excess VBG Potassium A-a O2 Difference Hgb O2 Saturation Glucose Lactate FiO2 Crit Value Called To Crit Value Called By Crit Value Read Back Blood Gas Notified Time Sodium Potassium Chloride Carbon Dioxide Anion Gap BUN Creatinine Est GFR ( Amer) Est GFR (Non-Af Amer) POC Glucose (mg/dL) 277 H Random Glucose Hemoglobin A1c Calcium Total Bilirubin AST ALT Alkaline Phosphatase Total Protein Albumin Globulin Albumin/Globulin Ratio Triglycerides Cholesterol LDL Cholesterol Direct HDL Cholesterol TSH 3rd Generation Venous Blood Potassium Urine Color Urine Clarity Urine pH Ur Specific [place] Urine Protein Urine Glucose (UA) Urine Ketones Urine Blood Urine Nitrate Urine Bilirubin Urine Urobilinogen Ur Leukocyte Esterase Urine RBC (Auto) Urine Microscopic WBC Ur Squamous Epith Cells Influenza Typ A,B (EIA) Accession No. : [id number] Patient Name / ID : YOHANNES HART / [id number] Exam Date : 03/05/2017 16:45:37 ( Approved ) Study Comment : Sex / Age : M / 31Y Creator : BRENDA AYON MD Dictator : BRENDA AYON MD Priest : Blind [place]er : BRENDA AYON MD Approver2 : Report Date : 03/05/2017 17:24:37 My Comment : HISTORY: Chest pain COMPARISON: No prior. TECHNIQUE: Chest PA and lateral FINDINGS: LUNGS: The lungs are clear. PLEURA: No significant pleural effusion identified. No pneumothorax apparent. CARDIOVASCULAR: Normal. OSSEOUS STRUCTURES: No significant abnormalities. VISUALIZED UPPER ABDOMEN: Normal. OTHER FINDINGS: None. IMPRESSION: No active pulmonary disease. Assessment & Plan - Assessment and Plan (Free Text) Assessment: A/P- 31 year old obese male with no pmh presented with bodyches, fever and leukocytosis. source of the leukocytosis and low garde fever unclear at this time. CXR- reported negative and lung exam was fine plan- check blood cx x 2 check UA and urine cx. check ECHO r/o IE. check ESR. check chest CT as cxr can sometimes lag . no objection to continuing with the empiric abx as were started by hospitalist pending further results. all above d/w patient. thank you fro allowing me to take part in the care of this patient.
--- NOTE | 2017-03-06 12:41 | CARD ---
APPROVED REPORT EKG Measurement Heart [id number] <Conclusion> Normal sinus rhythm Normal ECG
--- NOTE | 2017-03-06 13:47 | CP.PCM.PN ---
Subjective - Date & Time of Evaluation Date of Evaluation: 03/06/17 Time of Evaluation: 13:15 - Subjective Subjective: Pt seen and examined. Claimed he felt better and had nofever since yesterday. Objective - Vital Signs/Intake and Output Vital Signs (last 24 hours): Temp Pulse Resp BP Pulse Ox 98.2 F 65 20 132/74 98 03/06/17 13:00 03/06/17 13:00 03/06/17 13:00 03/06/17 13:00 03/06/17 13:00 Intake and Output: 03/06/17 03/06/17 06:59 18:59 Intake Total 2800 Balance 2800 - Medications Medications: Current Medications Acetaminophen (Tylenol 325mg Tab) 650 mg PO Q4 PRN PRN Reason: Fever >100.4 F Acetaminophen (Tylenol 325mg Tab) 650 mg PO Q6 PRN PRN Reason: Pain, moderate (4-7) Last Admin: 03/06/17 03:53 Dose: 650 mg Famotidine (Pepcid) 20 mg PO BID [facility] Last Admin: 03/06/17 09:14 Dose: 20 mg Sodium Chloride (Sodium Chloride 0.9%) 1,000 mls @ 200 mls/hr IV .Q5H [facility] Last Admin: 03/06/17 13:16 Dose: 200 mls/hr Ceftriaxone Sodium 1 gm/ (Sodium Chloride) 100 mls @ 100 mls/hr IVPB DAILY [facility] Last Admin: 03/06/17 09:15 Dose: 100 mls/hr Azithromycin 500 mg/ Sodium (Chloride) 250 mls @ 250 mls/hr IVPB DAILY [facility] Last Admin: 03/06/17 09:16 Dose: 250 mls/hr Insulin Human Lispro (Humalog) 0 units SC ACHS [facility] PRN Reason: Protocol Last Admin: 03/06/17 13:11 Dose: 4 u - Labs Labs: 03/06/17 06:35 03/06/17 06:35 - Constitutional Appears: No Acute Distress - Head Exam Head Exam: ATRAUMATIC - Eye Exam Eye Exam: absent: Scleral icterus - ENT Exam ENT Exam: Mucous Membranes Moist - Neck Exam Neck Exam: absent: Meningismus - Respiratory Exam Respiratory Exam: absent: Rhonchi, Wheezes, Respiratory Distress - Cardiovascular Exam Cardiovascular Exam: REGULAR RHYTHM, +S1, +S2 - GI/Abdominal Exam GI & Abdominal Exam: Soft. absent: Tenderness - Rectal Exam Rectal Exam: Deferred - Extremities Exam Extremities Exam: absent: Calf Tenderness, Pedal Edema - Back Exam Back Exam: NORMAL INSPECTION - Neurological Exam Neurological Exam: Alert, Oriented x3 - Psychiatric Exam Psychiatric exam: Normal Affect - Skin Skin Exam: Dry, Intact Assessment and Plan (1) Sepsis Status: Acute (2) Bronchitis Status: Acute (3) New onset type 2 diabetes mellitus Status: Acute - Assessment and Plan (Free Text) Assessment: 31 yo male with no significant PMH came in with on and off fever for 3 weeks accompanied with body malaise and coughing productive with greenish sputum. (1) Sepsis WBC remained high with predominance of lymphoid cells Have been afebrile since yesterday Blood and sputum cultures are pending Lactic Acid back to normal level of 1.1 Peripheral blood flow cytometry requested hematology consult with Dr Wise continue Rocephin and Zithromax. IV hydration with NSS 200cc/hr (2) Bronchitis CXray : negative for any pulmonary abnormality continue IV Rocephin and Zithromax. Tylenol 650mg PO q 4hrs prn for fever (3) New onset type 2 diabetes mellitus BS uncontrolled HgA1C: 17.1 accuchek with moderate Lispro coverage start on Metformin 500mg PO q 12hrs (4) Thrombocytopenia probably secondary to sepsis or hematologic malignancy Dr Wise on consult
--- NOTE | 2017-03-06 17:19 | CARD ---
APPROVED REPORT EXAM: Two-dimensional and M-mode echocardiogram with Doppler and color Doppler. Other Information Quality : AverageRhythm : NSR Technically limited study due to body habitus. INDICATION Infection: 2D DIMENSIONS IVSd1.09 (0.7-1.1cm)LVDd5.14 (3.9-5.9cm) LVOT Diameter4.01 (1.8-2.4cm)PWd1.03 (0.7-1.1cm) IVSs1.51 (0.8-1.2cm)LVDs3.15 (2.5-4.0cm) FS (%) 38.8 %PWs1.92 (0.8-1.2cm) LVEF (%)55.0 (>50%) M-Mode DIMENSIONS Left Atrium (MM)3.91 (2.5-4.0cm)IVSd1.32 (0.7-1.1cm) Aortic Root3.47 (2.2-3.7cm)LVDd5.41 (4.0-5.6cm) Aortic Cusp Exc.2.44 (1.5-2.0cm)PWd1.47 (0.7-1.1cm) IVSs1.97 cmFS (%) 39 % LVDs3.32 (2.0-3.8cm)PWs1.71 cm Mitral Valve E/A ratio0.0 TDI E/Lateral E'0.0E/Medial E'0.0 Pulmonary Valve PV Peak Diqesete374.8cm/s LEFT VENTRICLE The left ventricle is normal size. There is normal left ventricular wall thickness. The left ventricular function is normal. The left ventricular ejection fraction is within the normal range. There is normal LV segmental wall motion. The left ventricular diastolic function is normal. RIGHT VENTRICLE The right ventricle is normal size. There is normal right ventricular wall thickness. The right ventricular systolic function is normal. ATRIA The left atrium size is normal. The right atrium size is normal. AORTIC VALVE The aortic valve is not well visualized. No aortic regurgitation is present. There is no aortic valvular stenosis. MITRAL VALVE The mitral valve is normal in structure and function. There is no mitral valve stenosis. There is no mitral valve regurgitation noted. TRICUSPID VALVE not well seen There is no tricuspid valve regurgitation noted. PULMONIC VALVE The pulmonary valve is normal in structure There is trace pulmonic valvular regurgitation. GREAT VESSELS The aortic root is normal in size. The IVC is normal in size and collapses >50% with inspiration. PERICARDIAL EFFUSION The pericardium appears normal. <Conclusion> Poor Echo window No valvular vegetation seen
[2017-03-06 18:26] LABS: SQUAMOUS EPITHIAL 1 /hpf (0-5); URINE BACTERIA FEW (<OCC); URINE BILIRUBIN NEGATIVE (NEGATIVE); URINE BLOOD NEGATIVE (NEGATIVE); URINE CLARITY CLEAR (Clear); URINE COLOR YELLOW (YELLOW); URINE GLUCOSE (UA) >=500 mg/dL (Normal); URINE LEUKOCYTE ESTERASE NEG Leu/uL (Negative); URINE NITRATE NEGATIVE (NEGATIVE); URINE PROTEIN NEGATIVE (NEGATIVE); URINE UROBILINOGEN 0.2-1.0 mg/dL (0.2-1.0)
[2017-03-06 22:25] LABS: HEPATITIS B SURFACE AG NEGATIVE (NEGATIVE)
[2017-03-06 22:43] LABS: HEPATITIS C ANTIBODY NEGATIVE (NEGATIVE)
[2017-03-07] MEDS: Sodium Chloride 0.9% 1,000 ML IV SCH ×4 (00:30→15:30)
[2017-03-07] MEDS: Insulin Lispro (humaLOG) 100 Units/ml Inj SC SCH ×4 (06:29→21:55)
[2017-03-07 07:13] LABS: BASO # 0.1 K/uL (0.0-0.2); BASO % 0.6 % (0.0-2.0); EOS % 0.2 % (0.0-4.0); HEMOGLOBIN 11.4 g/dL (12.0-18.0); LYMPH # 23.5 K/uL (1.0-4.3); LYMPH % 94.9 % (20.0-40.0); MEAN CELL VOLUME 90.3 fl (80.0-94.0); MEAN CORPUSCULAR HEMOGLOBIN 30.2 pg (27.0-31.0); MEAN CORPUSCULAR HGB CONC 33.4 g/dL (33.0-37.0); MEAN PLATELET VOLUME 8.4 fl (7.2-11.7); MONO # 0.2 K/uL (0.0-0.8); MONO % 0.6 % (0.0-10.0); NEUT # 0.9 K/uL (1.8-7.0); NEUT % 3.7 % (50.0-75.0); NRBC % 0.4 % (0.0-0.0); RBC 3.77 Mil/uL (4.40-5.90); RED CELL DISTRIBUTION WIDTH 14.7 % (11.5-14.5); WHITE BLOOD COUNT 24.8 K/uL (4.8-10.8)
--- NOTE | 2017-03-07 09:31 | US ---
HISTORY: elevated liver enzymes, fever COMPARISON: None. TECHNIQUE: Sonographic evaluation of the abdomen. FINDINGS: LIVER: Measures 20.8 cm. Diffusely increased echogenicity of the liver parenchyma. Consistent with fatty infiltration. No mass. No biliary dilatation. Smooth contour. GALLBLADDER: No cholelithiasis. Mildly thickened wall up to 4 mm common nonspecific. No pericholecystic fluid. Negative sonographic Dee sign. COMMON BILE DUCT: Measures 5 mm. No stones. No dilatation. PANCREAS: Unremarkable as visualized. No mass. No ductal dilatation. RIGHT KIDNEY: Measures 15.2cm. Normal echogenicity. No calculus, mass, or hydronephrosis. LEFT KIDNEY: Measures 16.4cm. Normal echogenicity. No calculus, mass, or hydronephrosis. SPLEEN: 15.0 cm in length, mildly enlarged. No focal mass. AORTA: No aneurysmal dilatation. IVC: Could not be visualized. OTHER FINDINGS: None. IMPRESSION: Fatty liver. Hepatosplenomegaly. No evidence of cholelithiasis. Mild nonspecific mural thickening of the gallbladder.
[2017-03-07] MEDS: Azithromycin 500 MG in Sodium Chloride 0.9% 250 ML IVPB SCH (09:41)
--- NOTE | 2017-03-07 11:19 | CP.PCM.PN ---
Subjective - Date & Time of Evaluation Date of Evaluation: 03/07/17 Time of Evaluation: 10:30 - Subjective Subjective: No fever cough resolved no CP no SOB no abd pain feels very much better With the help of supervisor laboratory- Radha- discussed with pt test results, differential diagnoses and treatment plan Objective - Vital Signs/Intake and Output Vital Signs (last 24 hours): Temp Pulse Resp BP Pulse Ox 97.8 F 67 18 125/78 98 03/07/17 08:51 03/07/17 09:00 03/07/17 08:51 03/07/17 08:51 03/07/17 08:51 Intake and Output: 03/07/17 03/07/17 06:59 18:59 Intake Total 2720 Balance 2720 - Medications Medications: Current Medications Acetaminophen (Tylenol 325mg Tab) 650 mg PO Q4 PRN PRN Reason: Fever >100.4 F Acetaminophen (Tylenol 325mg Tab) 650 mg PO Q6 PRN PRN Reason: Pain, moderate (4-7) Last Admin: 03/06/17 15:56 Dose: 650 mg Famotidine (Pepcid) 20 mg PO BID [facility] Last Admin: 03/07/17 09:38 Dose: 20 mg Sodium Chloride (Sodium Chloride 0.9%) 1,000 mls @ 200 mls/hr IV .Q5H [facility] Last Admin: 03/07/17 06:29 Dose: 200 mls/hr Ceftriaxone Sodium 1 gm/ (Sodium Chloride) 100 mls @ 100 mls/hr IVPB DAILY [facility] Last Admin: 03/07/17 08:20 Dose: 100 mls/hr Azithromycin 500 mg/ Sodium (Chloride) 250 mls @ 250 mls/hr IVPB DAILY [facility] Last Admin: 03/07/17 09:41 Dose: 250 mls/hr Insulin Human Lispro (Humalog) 0 units SC ACHS [facility]IB[facility]AV PRN Reason: Protocol Last Admin: 03/07/17 06:29 Dose: 3 u Metformin HCl (Glucophage) 500 mg PO BIDWM [facility] Last Admin: 03/07/17 09:36 Dose: 500 mg - Labs Labs: 03/07/17 05:00 03/06/17 06:35 - Constitutional Appears: No Acute Distress - Head Exam Head Exam: ATRAUMATIC, NORMAL INSPECTION, NORMOCEPHALIC - Eye Exam Eye Exam: EOMI, Normal appearance, PERRL Pupil Exam: NORMAL ACCOMODATION - ENT Exam ENT Exam: Mucous Membranes Moist, Normal External Ear Exam - Neck Exam Neck Exam: Full ROM. absent: Meningismus - Respiratory Exam Respiratory Exam: NORMAL BREATHING PATTERN. absent: Rales, Wheezes, Respiratory Distress - Cardiovascular Exam Cardiovascular Exam: REGULAR RHYTHM, +S1, +S2 - GI/Abdominal Exam GI & Abdominal Exam: Soft. absent: Tenderness - Extremities Exam Extremities Exam: Full ROM, Normal Capillary Refill. absent: Calf Tenderness, Pedal Edema - Back Exam Back Exam: Full ROM, NORMAL INSPECTION. absent: CVA tenderness (L), CVA tenderness (R), paraspinal tenderness - Neurological Exam Neurological Exam: Alert, Awake, CN II-XII Intact, Normal Gait, Oriented x3 Neuro motor strength exam: Left Upper Extremity: 5, Right Upper Extremity: 5, Left Lower Extremity: 5, Right Lower Extremity: 5 - Psychiatric Exam Psychiatric exam: Normal Affect, Normal Mood - Skin Skin Exam: Dry, Normal Color, Warm Assessment and Plan (1) Leukocytosis Status: Acute (2) Thrombocytopenia Status: Acute (3) Bronchitis Status: Acute (4) New onset type 2 diabetes mellitus Status: Acute (5) Sepsis Status: Ruled-out - Assessment and Plan (Free Text) Assessment: 31 y/o gent no known PMH came bec of generalized weakness, some low grade fever , bodyaches and cough. Found to have markedly elevated WBC, lymphocyte predominance and thrombocytopenia. CXR negative. (1) Leukocytosis Status: Acute lymph predom with some atypical cells need to r/o Hematological malignancy Dr Wise consulted Flow Cytometry may poss need BM biopsy (2) Thrombocytopenia Status: Acute as above Abd: sono: spleen mild enlarged (3) Bronchitis Status: Acute pt has cough, CXR neg empirically on IV Azithro and ceftriaxone (4) New onset type 2 diabetes mellitus Status: Acute Pt did not know he had DM, obese accucheck started on Metformin add Glipizide IVF hydration [id number] DM teaching (5) Sepsis- unlikely Status: Ruled-out DVT proph - pt has thrombocytopenia, no anticoag
--- NOTE | 2017-03-07 14:20 | CP.PCM.PN ---
Subjective - Date & Time of Evaluation Date of Evaluation: 03/07/17 Time of Evaluation: 14:20 - Subjective Subjective: ID note- pt. seen and examined today. Pt. states he feels much better today. He denies any fever or chills. Objective - Vital Signs/Intake and Output Vital Signs (last 24 hours): Temp Pulse Resp BP Pulse Ox 97.9 F 77 20 156/88 H 98 03/07/17 12:19 03/07/17 12:19 03/07/17 12:19 03/07/17 12:19 03/07/17 12:19 Intake and Output: 03/07/17 03/07/17 06:59 18:59 Intake Total 2720 Balance 2720 - Medications Medications: Current Medications Acetaminophen (Tylenol 325mg Tab) 650 mg PO Q4 PRN PRN Reason: Fever >100.4 F Acetaminophen (Tylenol 325mg Tab) 650 mg PO Q6 PRN PRN Reason: Pain, moderate (4-7) Last Admin: 03/06/17 15:56 Dose: 650 mg Famotidine (Pepcid) 20 mg PO BID [facility] Last Admin: 03/07/17 09:38 Dose: 20 mg Glipizide (Glucotrol) 5 mg PO ACB [facility] Sodium Chloride (Sodium Chloride 0.9%) 1,000 mls @ 200 mls/hr IV .Q5H [facility] Last Admin: 03/07/17 13:20 Dose: 200 mls/hr Ceftriaxone Sodium 1 gm/ (Sodium Chloride) 100 mls @ 100 mls/hr IVPB DAILY [facility] Last Admin: 03/07/17 08:20 Dose: 100 mls/hr Azithromycin 500 mg/ Sodium (Chloride) 250 mls @ 250 mls/hr IVPB DAILY [facility] Last Admin: 03/07/17 09:41 Dose: 250 mls/hr Insulin Human Lispro (Humalog) 0 units SC ACHS [facility] PRN Reason: Protocol Last Admin: 03/07/17 13:21 Dose: 4 u Metformin HCl (Glucophage) 500 mg PO BIDWM [facility] Last Admin: 03/07/17 09:36 Dose: 500 mg - Labs Labs: - Additional Findings Additional findings: Constitutional Appears: Non-toxic, No Acute Distress - Head Exam Head Exam: ATRAUMATIC - Eye Exam Eye Exam: EOMI, PERRL - ENT Exam ENT Exam: Normal Oropharynx - Neck Exam Neck exam: Positive for: Full Rom Additional comments: supple no lesions noted on back of scalp and symmetrical both sides - Respiratory Exam Respiratory Exam: Clear to Auscultation Bilateral, NORMAL BREATHING PATTERN - Cardiovascular Exam Cardiovascular Exam: RRR, +S1, +S2 - GI/Abdominal Exam GI & Abdominal Exam: Normal Bowel Sounds, Soft Additional comments: NT, ND - Extremities Exam Additional comments: no edema b/L LE LLE with 2 round dried lesion about 5 x 6 cm one on the front and one on the lateral side of the LLE, [place] with surrounding darker region but no fluctuance, no tenderness, no erythema , no discharge - Neurological Exam Neurological exam: Alert, Oriented x 3 Laboratory Results - last 72 hr 03/05/17 03/05/17 03/05/17 16:20 16:20 16:27 WBC 23.2 H RBC 3.99 L Hgb 12.0 Hct 36.0 MCV 90.1 MCH 30.0 MCHC 33.3 RDW 14.7 H Plt Count 62 L MPV 9.1 Neut % (Auto) 3.3 L Lymph % (Auto) 94.5 H Bay % (Auto) 1.1 Eos % (Auto) 0.1 Baso % (Auto) 1.0 Neut # 0.8 L Lymph # 21.9 H Bay # 0.2 Eos # 0.0 Baso # 0.2 Neutrophils % (Manual) 5 L Lymphocytes % (Manual) 63 H Reactive Lymphs % 30 H Monocytes % (Manual) 2 Smudge Cells Present Platelet Estimate Markedly decreased L Polychromasia Slight Anisocytosis (manual) Slight Smear Path Review pCO2 pO2 HCO3 ABG pH ABG Total CO2 ABG O2 Saturation ABG O2 Content ABG Base Excess ABG Hemoglobin ABG Carboxyhemoglobin POC ABG HHb (Measured) ABG Methemoglobin ABG O2 Capacity Constantino Test VBG pH VBG pCO2 VBG HCO3 VBG Total CO2 VBG O2 Sat (Calc) VBG Base Excess VBG Potassium A-a O2 Difference Hgb O2 Saturation Glucose Lactate FiO2 Crit Value Called To Crit Value Called By Crit Value Read Back Blood Gas Notified Time Sodium 133 Potassium 4.0 Chloride 99 Carbon Dioxide 25 Anion Gap 14 BUN 10 Creatinine 0.6 L Est GFR ( Amer) > 60 Est GFR (Non-Af Amer) > 60 POC Glucose (mg/dL) Random Glucose 448 H* Hemoglobin A1c Calcium 8.8 Total Bilirubin 0.7 AST 94 H ALT 169 H Alkaline Phosphatase 110 Total Protein 7.2 Albumin 3.8 Globulin 3.5 Albumin/Globulin Ratio 1.1 Triglycerides Cholesterol LDL Cholesterol Direct HDL Cholesterol TSH 3rd Generation Venous Blood Potassium Urine Color Urine Clarity Urine pH Ur Specific [place] Urine Protein Urine Glucose (UA) Urine Ketones Urine Blood Urine Nitrate Urine Bilirubin Urine Urobilinogen Ur Leukocyte Esterase Urine RBC (Auto) Urine Microscopic WBC Ur Squamous Epith Cells Urine Bacteria Hep Bs Antigen Hep Bs Antibody Hepatitis C Antibody Influenza Typ A,B (EIA) Negative for flu a/b 03/05/17 03/05/17 03/05/17 17:00 17:50 19:44 WBC RBC Hgb Hct MCV MCH MCHC RDW Plt Count MPV Neut % (Auto) Lymph % (Auto) Bay % (Auto) Eos % (Auto) Baso % (Auto) Neut # Lymph # Bay # Eos # Baso # Neutrophils % (Manual) Lymphocytes % (Manual) Reactive Lymphs % Monocytes % (Manual) Smudge Cells Platelet Estimate Polychromasia Anisocytosis (manual) Smear Path Review pCO2 38 pO2 31 76 L HCO3 27.2 ABG pH 7.46 H ABG Total CO2 28.2 H ABG O2 Saturation 98.4 H ABG O2 Content 14.5 L ABG Base Excess 3.0 ABG Hemoglobin 10.8 L ABG Carboxyhemoglobin 2.0 H POC ABG HHb (Measured) 1.5 ABG Methemoglobin 1.5 ABG O2 Capacity 14.7 L Constantino Test Yes VBG pH 7.41 VBG pCO2 44 VBG HCO3 26.0 VBG Total CO2 29.3 H VBG O2 Sat (Calc) 65.8 H VBG Base Excess 2.7 H VBG Potassium 4.0 A-a O2 Difference 26.0 Hgb O2 Saturation 95.0 Glucose 468 H* Lactate 2.4 H FiO2 21.0 21.0 Crit Value Called To Dr camacho Crit Value Called By Rt Crit Value Read Back Y Blood Gas Notified Time 9701 Sodium 132.0 Potassium Chloride 97.0 L Carbon Dioxide Anion Gap BUN Creatinine Est GFR ( Amer) Est GFR (Non-Af Amer) POC Glucose (mg/dL) 288 H Random Glucose Hemoglobin A1c Calcium Total Bilirubin AST ALT Alkaline Phosphatase Total Protein Albumin Globulin Albumin/Globulin Ratio Triglycerides Cholesterol LDL Cholesterol Direct HDL Cholesterol TSH 3rd Generation Venous Blood Potassium 4.0 Urine Color Urine Clarity Urine pH Ur Specific [place] Urine Protein Urine Glucose (UA) Urine Ketones Urine Blood Urine Nitrate Urine Bilirubin Urine Urobilinogen Ur Leukocyte Esterase Urine RBC (Auto) Urine Microscopic WBC Ur Squamous Epith Cells Urine Bacteria Hep Bs Antigen Hep Bs Antibody Hepatitis C Antibody Influenza Typ A,B (EIA) 03/05/17 03/05/17 03/06/17 20:07 20:38 05:31 WBC RBC Hgb Hct MCV MCH MCHC RDW Plt Count MPV Neut % (Auto) Lymph % (Auto) Bay % (Auto) Eos % (Auto) Baso % (Auto) Neut # Lymph # Bay # Eos # Baso # Neutrophils % (Manual) Lymphocytes % (Manual) Reactive Lymphs % Monocytes % (Manual) Smudge Cells Platelet Estimate Polychromasia Anisocytosis (manual) Smear Path Review pCO2 pO2 52 HCO3 ABG pH ABG Total CO2 ABG O2 Saturation ABG O2 Content ABG Base Excess ABG Hemoglobin ABG Carboxyhemoglobin POC ABG HHb (Measured) ABG Methemoglobin ABG O2 Capacity Constantino Test VBG pH 7.42 VBG pCO2 40 VBG HCO3 25.7 VBG Total CO2 27.1 VBG O2 Sat (Calc) 92.8 H VBG Base Excess 1.3 VBG Potassium 4.4 A-a O2 Difference Hgb O2 Saturation Glucose 276 H Lactate 1.1 FiO2 21.0 Crit Value Called To Crit Value Called By Crit Value Read Back Blood Gas Notified Time Sodium 125.0 L Potassium Chloride 95.0 L Carbon Dioxide Anion Gap BUN Creatinine Est GFR ( Amer) Est GFR (Non-Af Amer) POC Glucose (mg/dL) 249 H Random Glucose Hemoglobin A1c Calcium Total Bilirubin AST ALT Alkaline Phosphatase Total Protein Albumin Globulin Albumin/Globulin Ratio Triglycerides Cholesterol LDL Cholesterol Direct HDL Cholesterol TSH 3rd Generation Venous Blood Potassium 4.4 Urine Color [place] Urine Clarity Clear Urine pH 6.0 Ur Specific [place] 1.053 H Urine Protein 30 Urine Glucose (UA) >=500 Urine Ketones Negative Urine Blood Negative Urine Nitrate Negative Urine Bilirubin Negative Urine Urobilinogen 0.2-1.0 Ur Leukocyte Esterase Neg Urine RBC (Auto) 3 Urine Microscopic WBC 1 Ur Squamous Epith Cells 1 Urine Bacteria Hep Bs Antigen Hep Bs Antibody Hepatitis C Antibody Influenza Typ A,B (EIA) 03/06/17 03/06/17 03/06/17 06:35 06:35 06:35 WBC 23.0 H RBC 3.64 L Hgb 11.0 L Hct 33.1 L MCV 90.9 MCH 30.1 MCHC 33.2 RDW 14.8 H Plt Count 53 L MPV 9.0 Neut % (Auto) 3.8 L Lymph % (Auto) 91.6 H [place] % (Auto) 3.1 Eos % (Auto) 0.2 Baso % (Auto) 1.3 Neut # 0.9 L Lymph # 21.1 H [place] # 0.7 Eos # 0.0 Baso # 0.3 H Neutrophils % (Manual) Lymphocytes % (Manual) Reactive Lymphs % Monocytes % (Manual) Smudge Cells Platelet Estimate Polychromasia Anisocytosis (manual) Smear Path Review pCO2 pO2 HCO3 ABG pH ABG Total CO2 ABG O2 Saturation ABG O2 Content ABG Base Excess ABG Hemoglobin ABG Carboxyhemoglobin POC ABG HHb (Measured) ABG Methemoglobin ABG O2 Capacity Constantino Test VBG pH VBG pCO2 VBG HCO3 VBG Total CO2 VBG O2 Sat (Calc) VBG Base Excess VBG Potassium A-a O2 Difference Hgb O2 Saturation Glucose Lactate FiO2 Crit Value Called To Crit Value Called By Crit Value Read Back Blood Gas Notified Time Sodium 141 Potassium 4.1 Chloride 106 Carbon Dioxide 28 Anion Gap 12 BUN 12 Creatinine 0.6 L Est GFR ( Amer) > 60 Est GFR (Non-Af Amer) > 60 POC Glucose (mg/dL) Random Glucose 208 H Hemoglobin A1c 17.1 H Calcium 8.6 Total Bilirubin AST ALT Alkaline Phosphatase Total Protein Albumin Globulin Albumin/Globulin Ratio Triglycerides 219 H Cholesterol 107 LDL Cholesterol Direct 54 HDL Cholesterol 15 L TSH 3rd Generation 5.19 H Venous Blood Potassium Urine Color Urine Clarity Urine pH Ur Specific [place] Urine Protein Urine Glucose (UA) Urine Ketones Urine Blood Urine Nitrate Urine Bilirubin Urine Urobilinogen Ur Leukocyte Esterase Urine RBC (Auto) Urine Microscopic WBC Ur Squamous Epith Cells Urine Bacteria Hep Bs Antigen Hep Bs Antibody Hepatitis C Antibody Influenza Typ A,B (EIA) 03/06/17 03/06/17 03/06/17 11:54 16:17 16:34 WBC RBC Hgb Hct MCV MCH MCHC RDW Plt Count MPV Neut % (Auto) Lymph % (Auto) Bay % (Auto) Eos % (Auto) Baso % (Auto) Neut # Lymph # [place] # Eos # Baso # Neutrophils % (Manual) Lymphocytes % (Manual) Reactive Lymphs % Monocytes % (Manual) Smudge Cells Platelet Estimate Polychromasia Anisocytosis (manual) Smear Path Review pCO2 pO2 HCO3 ABG pH ABG Total CO2 ABG O2 Saturation ABG O2 Content ABG Base Excess ABG Hemoglobin ABG Carboxyhemoglobin POC ABG HHb (Measured) ABG Methemoglobin ABG O2 Capacity Constantino Test VBG pH VBG pCO2 VBG HCO3 VBG Total CO2 VBG O2 Sat (Calc) VBG Base Excess VBG Potassium A-a O2 Difference Hgb O2 Saturation Glucose Lactate FiO2 Crit Value Called To Crit Value Called By Crit Value Read Back Blood Gas Notified Time Sodium Potassium Chloride Carbon Dioxide Anion Gap BUN Creatinine Est GFR ( Amer) Est GFR (Non-Af Amer) POC Glucose (mg/dL) 277 H 349 H Random Glucose Hemoglobin A1c Calcium Total Bilirubin AST ALT Alkaline Phosphatase Total Protein Albumin Globulin Albumin/Globulin Ratio Triglycerides Cholesterol LDL Cholesterol Direct HDL Cholesterol TSH 3rd Generation Venous Blood Potassium Urine Color Urine Clarity Urine pH Ur Specific [place] Urine Protein Urine Glucose (UA) Urine Ketones Urine Blood Urine Nitrate Urine Bilirubin Urine Urobilinogen Ur Leukocyte Esterase Urine RBC (Auto) Urine Microscopic WBC Ur Squamous Epith Cells Urine Bacteria Hep Bs Antigen Negative Hep Bs Antibody Hepatitis C Antibody Negative Influenza Typ A,B (EIA) 03/06/17 03/06/17 03/06/17 16:34 18:12 21:41 WBC RBC Hgb Hct MCV MCH MCHC RDW Plt Count MPV Neut % (Auto) Lymph % (Auto) Bay % (Auto) Eos % (Auto) Baso % (Auto) Neut # Lymph # [place] # Eos # Baso # Neutrophils % (Manual) Lymphocytes % (Manual) Reactive Lymphs % Monocytes % (Manual) Smudge Cells Platelet Estimate Polychromasia Anisocytosis (manual) Smear Path Review pCO2 pO2 HCO3 ABG pH ABG Total CO2 ABG O2 Saturation ABG O2 Content ABG Base Excess ABG Hemoglobin ABG Carboxyhemoglobin POC ABG HHb (Measured) ABG Methemoglobin ABG O2 Capacity Constantino Test VBG pH VBG pCO2 VBG HCO3 VBG Total CO2 VBG O2 Sat (Calc) VBG Base Excess VBG Potassium A-a O2 Difference Hgb O2 Saturation Glucose Lactate FiO2 Crit Value Called To Crit Value Called By Crit Value Read Back Blood Gas Notified Time Sodium Potassium Chloride Carbon Dioxide Anion Gap BUN Creatinine Est GFR ( Amer) Est GFR (Non-Af Amer) POC Glucose (mg/dL) 248 H Random Glucose Hemoglobin A1c Calcium Total Bilirubin AST ALT Alkaline Phosphatase Total Protein Albumin Globulin Albumin/Globulin Ratio Triglycerides Cholesterol LDL Cholesterol Direct HDL Cholesterol TSH 3rd Generation Venous Blood Potassium Urine Color Yellow Urine Clarity Clear Urine pH 6.0 Ur Specific [place] 1.015 Urine Protein Negative Urine Glucose (UA) >=500 Urine Ketones Negative Urine Blood Negative Urine Nitrate Negative Urine Bilirubin Negative Urine Urobilinogen 0.2-1.0 Ur Leukocyte Esterase Neg Urine RBC (Auto) 1 Urine Microscopic WBC < 1 Ur Squamous Epith Cells 1 Urine Bacteria Few H Hep Bs Antigen Hep Bs Antibody Negative Hepatitis C Antibody Influenza Typ A,B (EIA) 03/07/17 03/07/17 03/07/17 05:00 05:35 10:59 WBC 24.8 H RBC 3.77 L Hgb 11.4 L Hct 34.1 L MCV 90.3 MCH 30.2 MCHC 33.4 RDW 14.7 H Plt Count 63 L MPV 8.4 Neut % (Auto) 3.7 L Lymph % (Auto) 94.9 H [place] % (Auto) 0.6 Eos % (Auto) 0.2 Baso % (Auto) 0.6 Neut # 0.9 L Lymph # 23.5 H [place] # 0.2 Eos # 0.0 Baso # 0.1 Neutrophils % (Manual) Lymphocytes % (Manual) Reactive Lymphs % Monocytes % (Manual) Smudge Cells Platelet Estimate Polychromasia Anisocytosis (manual) Smear Path Review pCO2 pO2 HCO3 ABG pH ABG Total CO2 ABG O2 Saturation ABG O2 Content ABG Base Excess ABG Hemoglobin ABG Carboxyhemoglobin POC ABG HHb (Measured) ABG Methemoglobin ABG O2 Capacity Constantino Test VBG pH VBG pCO2 VBG HCO3 VBG Total CO2 VBG O2 Sat (Calc) VBG Base Excess VBG Potassium A-a O2 Difference Hgb O2 Saturation Glucose Lactate FiO2 Crit Value Called To Crit Value Called By Crit Value Read Back Blood Gas Notified Time Sodium Potassium Chloride Carbon Dioxide Anion Gap BUN Creatinine Est GFR ( Amer) Est GFR (Non-Af Amer) POC Glucose (mg/dL) 212 H 253 H Random Glucose Hemoglobin A1c Calcium Total Bilirubin AST ALT Alkaline Phosphatase Total Protein Albumin Globulin Albumin/Globulin Ratio Triglycerides Cholesterol LDL Cholesterol Direct HDL Cholesterol TSH 3rd Generation Venous Blood Potassium Urine Color Urine Clarity Urine pH Ur Specific [place] Urine Protein Urine Glucose (UA) Urine Ketones Urine Blood Urine Nitrate Urine Bilirubin Urine Urobilinogen Ur Leukocyte Esterase Urine RBC (Auto) Urine Microscopic WBC Ur Squamous Epith Cells Urine Bacteria Hep Bs Antigen Hep Bs Antibody Hepatitis C Antibody Influenza Typ A,B (EIA) 03/07/17 15:59 WBC RBC Hgb Hct MCV MCH MCHC RDW Plt Count MPV Neut % (Auto) Lymph % (Auto) Bay % (Auto) Eos % (Auto) Baso % (Auto) Neut # Lymph # [place] # Eos # Baso # Neutrophils % (Manual) Lymphocytes % (Manual) Reactive Lymphs % Monocytes % (Manual) Smudge Cells Platelet Estimate Polychromasia Anisocytosis (manual) Smear Path Review pCO2 pO2 HCO3 ABG pH ABG Total CO2 ABG O2 Saturation ABG O2 Content ABG Base Excess ABG Hemoglobin ABG Carboxyhemoglobin POC ABG HHb (Measured) ABG Methemoglobin ABG O2 Capacity Constantino Test VBG pH VBG pCO2 VBG HCO3 VBG Total CO2 VBG O2 Sat (Calc) VBG Base Excess VBG Potassium A-a O2 Difference Hgb O2 Saturation Glucose Lactate FiO2 Crit Value Called To Crit Value Called By Crit Value Read Back Blood Gas Notified Time Sodium Potassium Chloride Carbon Dioxide Anion Gap BUN Creatinine Est GFR ( Amer) Est GFR (Non-Af Amer) POC Glucose (mg/dL) 185 H Random Glucose Hemoglobin A1c Calcium Total Bilirubin AST ALT Alkaline Phosphatase Total Protein Albumin Globulin Albumin/Globulin Ratio Triglycerides Cholesterol LDL Cholesterol Direct HDL Cholesterol TSH 3rd Generation Venous Blood Potassium Urine Color Urine Clarity Urine pH Ur Specific [place] Urine Protein Urine Glucose (UA) Urine Ketones Urine Blood Urine Nitrate Urine Bilirubin Urine Urobilinogen Ur Leukocyte Esterase Urine RBC (Auto) Urine Microscopic WBC Ur Squamous Epith Cells Urine Bacteria Hep Bs Antigen Hep Bs Antibody Hepatitis C Antibody Influenza Typ A,B (EIA) Microbiology 03/06/17 18:30 Blood-Venous Blood Culture - Preliminary NO GROWTH AFTER 24 HOURS 03/06/17 18:30 Blood-Venous Blood Culture - Preliminary NO GROWTH AFTER 24 HOURS 03/05/17 16:20 Blood Blood Culture - Preliminary NO GROWTH AFTER 48 HOURS 03/05/17 16:50 Blood Blood Culture - Preliminary NO GROWTH AFTER 48 HOURS 03/06/17 18:12 Urine,Clean Catch Urine Culture - Final No Growth (<1,000 CFU/ML) Accession No. : [id number] Patient Name / ID : YOHANNES Sommer / [id number] Exam Date : 03/07/2017 08:28:48 ( Approved ) Study Comment : Sex / Age : M / 31Y Creator : Reynold Baldwin MD Dictator : Reynold Baldwin MD Assembler Erector : Cat Operator : Reynold Baldwin MD Approver2 : Report Date : 03/07/2017 09:25:30 My Comment : HISTORY: elevated liver enzymes, fever COMPARISON: None. TECHNIQUE: Sonographic evaluation of the abdomen. FINDINGS: LIVER: Measures 20.8 cm. Diffusely increased echogenicity of the liver parenchyma. Consistent with fatty infiltration. No mass. No biliary dilatation. Smooth contour. GALLBLADDER: No cholelithiasis. Mildly thickened wall up to 4 mm common nonspecific. No pericholecystic fluid. Negative sonographic Dee sign. COMMON BILE DUCT: Measures 5 mm. No stones. No dilatation. PANCREAS: Unremarkable as visualized. No mass. No ductal dilatation. RIGHT KIDNEY: Measures 15.2cm. Normal echogenicity. No calculus, mass, or hydronephrosis. LEFT KIDNEY: Measures 16.4cm. Normal echogenicity. No calculus, mass, or hydronephrosis. SPLEEN: 15.0 cm in length, mildly enlarged. No focal mass. AORTA: No aneurysmal dilatation. IVC: Could not be visualized. OTHER FINDINGS: None. IMPRESSION: Fatty liver. Hepatosplenomegaly. No evidence of cholelithiasis. Mild nonspecific mural thickening of the gallbladder. Assessment and Plan (1) Leukocytosis Status: Acute (2) New onset type 2 diabetes mellitus Status: Acute (3) Thrombocytopenia Status: Acute (4) Splenomegaly Status: Acute (5) Hepatomegaly Status: Acute - Assessment and Plan (Free Text) Assessment: A/P- 31 year old obese male with no pmh presented with bodyches, fever and leukocytosis. afebrile continues to have leukocytosis with predominantly lymphocytois mild thrombocytopenia as well CXR- reported negative and lung exam was fine abd US- reported as fatty liver with hepatomegaly and splenomegaly. ECHO- no vegetations as per shuttle preparation supervisor's report blood cx- neg x 4 urine cx- neg HCV ab- neg Hbs Ag- neg plan- would advise heme consult for further eval of the lymphocytosis and thrombocytopenia r/o malignancy. may need BM bx. advise chest and abd Ct as well r/o any lymphadenopathy.
--- NOTE | 2017-03-07 18:42 | CP.PCM.CON ---
History of Present Illness - History of Present Illness History of Present Illness: 31 year old male admitted with fever and chills, productive cough, with persistent leukocytosis and lymphocytosis despite antibiotic therapy. He reports to progressive weightloss and fatigue. He reports to a good appetite but notes to a 60 pound weightloss. Peripheral smear review by pathology with concern for atypical lymphocytes. Past medical history: None Past surgical history: None Family history: Denies hematologic and oncologic problems Social history: Denies tobacco, alcohol, and illicit drug use. Allergies: NKA Review of systems: All remaining review of systems including HEENT, cardiovascular, respiratory, gastrointestinal, genitourinary, musculoskeletal, dermatologic, neurologic, and psychiatric are negative unless mentioned in the HPI. Past Patient History - Tetanus Immunizations Tetanus Immunization: Unknown - Past Medical History & Family History Past Medical History?: Yes - Past Social History Smoking Status: Never Smoked - CARDIAC Hx Cardiac Disorders: No - PULMONARY Hx Respiratory Disorders: No - NEUROLOGICAL Hx Neurological Disorder: No - HEENT Hx HEENT Problems: No - RENAL Hx Chronic Kidney Disease: No - ENDOCRINE/METABOLIC Hx Endocrine Disorders: No - HEMATOLOGICAL/ONCOLOGICAL Hx Blood Disorders: No - INTEGUMENTARY Hx Dermatological Problems: Yes Other/Comment: FUNGAL INFECTION SCALP AND LEFT LEG - MUSCULOSKELETAL/RHEUMATOLOGICAL Hx Musculoskeletal Disorders: No Hx Falls: No - GASTROINTESTINAL Hx Gastrointestinal Disorders: No - GENITOURINARY/GYNECOLOGICAL Hx Genitourinary Disorders: No - PSYCHIATRIC Hx Psychophysiologic Disorder: No Hx Substance Use: No - SURGICAL HISTORY Hx Surgeries: No - ANESTHESIA Hx Anesthesia: No Hx Anesthesia Reactions: No Hx Malignant Hyperthermia: No Meds Allergies/Adverse Reactions: Allergies Allergy/AdvReac Type Severity Reaction Status Date / Time No Known Allergies Allergy Verified 03/05/17 15:57 - Medications Medications: Current Medications Acetaminophen (Tylenol 325mg Tab) 650 mg PO Q4 PRN PRN Reason: Fever >100.4 F Acetaminophen (Tylenol 325mg Tab) 650 mg PO Q6 PRN PRN Reason: Pain, moderate (4-7) Last Admin: 03/06/17 15:56 Dose: 650 mg Famotidine (Pepcid) 20 mg PO BID [facility] Last Admin: 03/07/17 17:58 Dose: 20 mg Glipizide (Glucotrol) 5 mg PO ACB [facility] Sodium Chloride (Sodium Chloride 0.9%) 1,000 mls @ 200 mls/hr IV .Q5H [facility] Last Admin: 03/07/17 15:30 Dose: 200 mls/hr Ceftriaxone Sodium 1 gm/ (Sodium Chloride) 100 mls @ 100 mls/hr IVPB DAILY [facility] Last Admin: 03/07/17 08:20 Dose: 100 mls/hr Azithromycin 500 mg/ Sodium (Chloride) 250 mls @ 250 mls/hr IVPB DAILY [facility] Last Admin: 03/07/17 09:41 Dose: 250 mls/hr Insulin Human Lispro (Humalog) 0 units SC ACHS [facility] PRN Reason: Protocol Last Admin: 03/07/17 17:50 Dose: 2 u Metformin HCl (Glucophage) 500 mg PO BIDWM [facility] Last Admin: 03/07/17 17:57 Dose: 500 mg Physical Exam - Head Exam Head Exam: ATRAUMATIC - Eye Exam Eye Exam: Normal appearance - ENT Exam ENT Exam: Mucous Membranes Dry - Respiratory Exam Respiratory Exam: NORMAL BREATHING PATTERN - Cardiovascular Exam Cardiovascular Exam: +S1, +S2 - GI/Abdominal Exam GI & Abdominal Exam: Normal Bowel Sounds - Extremities Exam Extremities exam: Positive for: normal inspection - Neurological Exam Neurological exam: Oriented x3 - Psychiatric Exam Psychiatric exam: Normal Affect, Normal Mood - Skin Skin Exam: Warm Results - Vital Signs Recent Vital Signs: Last Vital Signs Temp 98.5 F 03/07/17 16:08 Pulse 73 03/07/17 16:08 Resp 14 03/07/17 16:08 BP 147/89 03/07/17 16:08 Pulse Ox 97 03/07/17 16:08 - Labs Result Diagrams: 03/08/17 05:45 03/08/17 05:45 Labs: Laboratory Results - last 24 hr 03/06/17 03/06/17 03/06/17 16:34 16:34 21:41 WBC RBC Hgb Hct MCV MCH MCHC RDW Plt Count MPV Neut % (Auto) Lymph % (Auto) [place] % (Auto) Eos % (Auto) Baso % (Auto) Neut # Lymph # [place] # Eos # Baso # POC Glucose (mg/dL) 248 H Hep Bs Antigen Negative Hep Bs Antibody Negative Hepatitis C Antibody Negative 03/07/17 03/07/17 03/07/17 05:00 05:35 10:59 WBC 24.8 H RBC 3.77 L Hgb 11.4 L Hct 34.1 L MCV 90.3 MCH 30.2 MCHC 33.4 RDW 14.7 H Plt Count 63 L MPV 8.4 Neut % (Auto) 3.7 L Lymph % (Auto) 94.9 H [place] % (Auto) 0.6 Eos % (Auto) 0.2 Baso % (Auto) 0.6 Neut # 0.9 L Lymph # 23.5 H [place] # 0.2 Eos # 0.0 Baso # 0.1 POC Glucose (mg/dL) 212 H 253 H Hep Bs Antigen Hep Bs Antibody Hepatitis C Antibody 03/07/17 15:59 WBC RBC Hgb Hct MCV MCH MCHC RDW Plt Count MPV Neut % (Auto) Lymph % (Auto) [place] % (Auto) Eos % (Auto) Baso % (Auto) Neut # Lymph # [place] # Eos # Baso # POC Glucose (mg/dL) 185 H Hep Bs Antigen Hep Bs Antibody Hepatitis C Antibody Assessment & Plan (1) Lymphocytosis Assessment and Plan: peripheral blood flow cytometery sent f/u results may need bone marrow biopsy Status: Acute (2) Thrombocytopenia Assessment and Plan: will check HIV and hepatitis panel f/u peripheral blood flow cytometery may need bone marrow biopsy Status: Acute (3) Anemia Assessment and Plan: will check ferritin, retic count, b12, folate to further characterize Thank you for this interesting consult. Status: Acute
[2017-03-08 02:57] LABS: HAV AB (IGM) Nonreactive (Nonreactive)
[2017-03-08] MEDS: Insulin Lispro (humaLOG) 100 Units/ml Inj SC SCH ×4 (06:40→22:48)
[2017-03-08 06:59] LABS: HEMOGLOBIN 10.7 g/dL (12.0-18.0); LYMPH # 22.2 K/uL (1.0-4.3); LYMPH % 95.3 % (20.0-40.0); MEAN CELL VOLUME 91.4 fl (80.0-94.0); MEAN CORPUSCULAR HEMOGLOBIN 30.2 pg (27.0-31.0); MEAN CORPUSCULAR HGB CONC 33.1 g/dL (33.0-37.0); MEAN PLATELET VOLUME 8.6 fl (7.2-11.7); MONO # 0.2 K/uL (0.0-0.8); MONO % 0.8 % (0.0-10.0); NEUT # 0.9 K/uL (1.8-7.0); NEUT % 3.9 % (50.0-75.0); NRBC % 1.3 % (0.0-0.0); RBC 3.54 Mil/uL (4.40-5.90); RED CELL DISTRIBUTION WIDTH 14.9 % (11.5-14.5); WHITE BLOOD COUNT 23.2 K/uL (4.8-10.8)
[2017-03-08 07:21] LABS: ALBUMIN 3.1 g/dL (3.5-5.0); BLOOD UREA NITROGEN 11 mg/dl (9-20); CALCIUM 9.2 mg/dL (8.4-10.2); GFR AFRICAN-AMERICAN > 60; GFR NON-AFRICAN AMERICAN > 60
[2017-03-08 07:22] LABS: ALT/SGPT 111 U/L (21-72); AST/SGOT 58 U/L (17-59)
[2017-03-08] MEDS: Azithromycin 500 MG in Sodium Chloride 0.9% 250 ML IVPB SCH (08:55)
--- NOTE | 2017-03-08 13:16 | CP.PCM.PN ---
Subjective - Date & Time of Evaluation Date of Evaluation: 03/08/17 Time of Evaluation: 10:20 - Subjective Subjective: Pt seen and examined. Claimed he is feeling better aside from frequent diaphoresis and headache at night time. Objective - Vital Signs/Intake and Output Vital Signs (last 24 hours): Temp Pulse Resp BP Pulse Ox 98.1 F 83 18 128/85 96 03/08/17 12:00 03/08/17 12:00 03/08/17 12:00 03/08/17 12:00 03/08/17 12:00 - Medications Medications: Current Medications Acetaminophen (Tylenol 325mg Tab) 650 mg PO Q4 PRN PRN Reason: Fever >100.4 F Acetaminophen (Tylenol 325mg Tab) 650 mg PO Q6 PRN PRN Reason: Pain, moderate (4-7) Last Admin: 03/07/17 21:54 Dose: 650 mg Famotidine (Pepcid) 20 mg PO BID [facility] Last Admin: 03/08/17 08:55 Dose: 20 mg Glipizide (Glucotrol) 5 mg PO ACB [facility] Last Admin: 03/08/17 08:54 Dose: 5 mg Ceftriaxone Sodium 1 gm/ (Sodium Chloride) 100 mls @ 100 mls/hr IVPB DAILY [facility] Last Admin: 03/08/17 08:55 Dose: 100 mls/hr Azithromycin 500 mg/ Sodium (Chloride) 250 mls @ 250 mls/hr IVPB DAILY [facility] Last Admin: 03/08/17 08:55 Dose: 250 mls/hr Insulin Human Lispro (Humalog) 0 units SC ACHS [facility] PRN Reason: Protocol Last Admin: 03/08/17 13:02 Dose: 3 u Metformin HCl (Glucophage) 500 mg PO BIDWM [facility] Last Admin: 03/08/17 08:54 Dose: 500 mg - Labs Labs: 03/08/17 05:45 03/08/17 05:45 - Constitutional Appears: No Acute Distress - Head Exam Head Exam: ATRAUMATIC - Eye Exam Eye Exam: absent: Scleral icterus - ENT Exam ENT Exam: Mucous Membranes Moist - Neck Exam Neck Exam: absent: Meningismus - Respiratory Exam Respiratory Exam: absent: Rhonchi, Wheezes, Respiratory Distress - Cardiovascular Exam Cardiovascular Exam: REGULAR RHYTHM, +S1, +S2 - GI/Abdominal Exam GI & Abdominal Exam: Soft. absent: Tenderness - Rectal Exam Rectal Exam: Deferred - Extremities Exam Extremities Exam: absent: Pedal Edema - Back Exam Back Exam: NORMAL INSPECTION - Neurological Exam Neurological Exam: Alert, Oriented x3 - Psychiatric Exam Psychiatric exam: Normal Affect - Skin Skin Exam: Dry, Intact Assessment and Plan (1) Sepsis Status: Ruled-out (2) Bronchitis Status: Acute (3) New onset type 2 diabetes mellitus Status: Acute - Assessment and Plan (Free Text) Assessment: 31 yo male with no significant PMH came in with on and off fever for 3 weeks accompanied with body malaise and coughing productive with greenish sputum. (1) Leukocytosis WBC remained elevated and remained predominant with lymphoid cells r/o hematological malignancy Dr Wise on consult peripheral blood flow cytometry pending (sent out) will need BM biopsy Chest/Abdomen CT scan: to check for lymphadenopathy (2) Thrombocytopenia probably related to above specially with hepatosplenomegaly CT scan of Chest/Abdomen (3) Bronchitis CXray : negative for any pulmonary abnormality continue IV Rocephin and Zithromax. feeling better and continued to be afebrile (4) New onset type 2 diabetes mellitus BS uncontrolled HgA1C: 17.1 accuchek with moderate Lispro coverage increase Metformin to 850mg PO BID Glipizide 5mg PO daily
--- NOTE | 2017-03-08 14:25 | CT ---
CT chest and abdomen without IV contrast Indication: Lymphocytosis Technique: Contiguous axial images were obtained through the chest and abdomen without intravenous contrast enhancement. Sagittal and coronal reconstructions were generated and reviewed. This CT exam was performed using 1 or more of the falling dose reduction techniques: Automated exposure control, adjustment of the MAA and/or kV according to patient size, and/or use of iterative reconstruction technique. Radiation dose (DLP): 1182.95 MGy-cm. Comparison: Chest x-ray performed 03/05/17 Findings: Visualized portions of the inferior thyroid gland appear unremarkable. The unenhanced mediastinal and hilar vascular structures appear grossly unremarkable. The heart appears within normal limits of size. No focal consolidation. No pleural effusion. No pneumothorax. 3 mm calcified granuloma, right middle lobe. 5 mm left lower lobe pulmonary nodule (series 3, image 75). Nonspecific prominent bilateral axillary lymph nodes, nonspecific. Scattered lymph nodes evident within the included portions lower neck as well as mediastinum/prevascular region. Please note lack of IV contrast limits evaluation for adenopathy, in particular hilar adenopathy. 12 mm right peritracheal lymph node contains punctate calcifications, indeterminate (series 2, image 32). Prominent sub cm mesenteric and retroperitoneal lymph nodes, nonspecific. Hepatomegaly. Hypoattenuation of the liver compatible with hepatic steatosis. Suspected focal fatty sparing adjacent to the gallbladder fossa. Decompressed gallbladder limits evaluation. Borderline splenomegaly. The kidneys, pancreas, and adrenal glands appear unremarkable. The stomach is nondistended. The included upper bowel loops appear within normal limits of caliber without evidence of intestinal obstruction. There is no definite free air. Bilateral L5 spondylolysis. Endplate sclerosis and vacuum disc phenomenon at L5-S1. Impression: 5 mm left lower lobe pulmonary nodule. Guidelines by the Fleischner society (radiology 2005; 237:395-400) suggests that in patients with low risk for lung cancer, nodules from 5 mm to 6 mm in diameter should have follow-up in approximately 12 months. In patients with high-risk, such as those were smokers, follow-up is recommended in 6 months. Patients with a known malignancy or risk for metastases should receive 3 month follow-up. Nonspecific prominent bilateral axillary lymph nodes, nonspecific. Scattered lymph nodes evident within the included portions lower neck as well as mediastinum/prevascular region. Please note lack of IV contrast limits evaluation for adenopathy, in particular hilar adenopathy. 12 mm right peritracheal lymph node contains punctate calcifications, indeterminate. Prominent sub cm mesenteric and retroperitoneal lymph nodes, nonspecific. Hepatomegaly. Hypoattenuation of the liver compatible with hepatic steatosis. Suspected focal fatty sparing adjacent to the gallbladder fossa. Decompressed gallbladder limits evaluation. Borderline splenomegaly.
--- NOTE | 2017-03-08 18:32 | CP.PCM.PN ---
Subjective - Date & Time of Evaluation Date of Evaluation: 03/08/17 Time of Evaluation: 15:00 - Subjective Subjective: ID Note- Pt. seen and examined today. denies nay fever or chills. he only states that he has been feeling enlarged glands in the back of his head for past few weeks. Objective - Vital Signs/Intake and Output Vital Signs (last 24 hours): Temp Pulse Resp BP Pulse Ox 98.5 F 84 16 131/84 96 03/08/17 16:09 03/08/17 16:09 03/08/17 16:09 03/08/17 16:09 03/08/17 16:09 Intake and Output: 03/08/17 03/08/17 06:59 18:59 Intake Total 1500 Output Total 3 Balance 1497 - Medications Medications: Current Medications Acetaminophen (Tylenol 325mg Tab) 650 mg PO Q4 PRN PRN Reason: Fever >100.4 F Acetaminophen (Tylenol 325mg Tab) 650 mg PO Q6 PRN PRN Reason: Pain, moderate (4-7) Last Admin: 03/07/17 21:54 Dose: 650 mg Famotidine (Pepcid) 20 mg PO BID [facility] Last Admin: 03/08/17 16:50 Dose: 20 mg Glipizide (Glucotrol) 5 mg PO ACB [facility] Last Admin: 03/08/17 08:54 Dose: 5 mg Ceftriaxone Sodium 1 gm/ (Sodium Chloride) 100 mls @ 100 mls/hr IVPB DAILY [facility] Last Admin: 03/08/17 08:55 Dose: 100 mls/hr Azithromycin 500 mg/ Sodium (Chloride) 250 mls @ 250 mls/hr IVPB DAILY [facility] Last Admin: 03/08/17 08:55 Dose: 250 mls/hr Insulin Human Lispro (Humalog) 0 units SC ACHS VAIBHAV PRN Reason: Protocol Last Admin: 03/08/17 16:49 Dose: Not Given Metformin HCl (Glucophage) 850 mg PO BIDWM [facility] Last Admin: 03/08/17 16:49 Dose: 850 mg - Labs Labs: - Additional Findings Additional findings: Constitutional Appears: Non-toxic, No Acute Distress - Head Exam Head Exam: ATRAUMATIC - Eye Exam Eye Exam: EOMI, PERRL - ENT Exam ENT Exam: Normal Oropharynx - Neck Exam Neck exam: Positive for: Full Rom Additional comments: supple left postauricaular region with slightly enlarged lymph node , not tender - Respiratory Exam Respiratory Exam: Clear to Auscultation Bilateral, NORMAL BREATHING PATTERN - Cardiovascular Exam Cardiovascular Exam: RRR, +S1, +S2 - GI/Abdominal Exam GI & Abdominal Exam: Normal Bowel Sounds, Soft Additional comments: NT, ND - Extremities Exam Additional comments: no edema b/L LE LLE with 2 round dried lesion about 5 x 6 cm one on the front and one on the lateral side of the LLE, [place] with surrounding darker region but no fluctuance, no tenderness, no erythema , no discharge - Neurological Exam Neurological exam: Alert, Oriented x 3 Laboratory Results - last 72 hr 03/05/17 03/05/17 03/05/17 16:20 19:44 20:07 WBC RBC Hgb Hct MCV MCH MCHC RDW Plt Count MPV Neut % (Auto) Lymph % (Auto) Wayne % (Auto) Eos % (Auto) Baso % (Auto) Neut # Lymph # Wayne # Eos # Baso # Smear Path Review ESR pO2 VBG pH VBG pCO2 VBG HCO3 VBG Total CO2 VBG O2 Sat (Calc) VBG Base Excess VBG Potassium Sodium Chloride Glucose Lactate FiO2 Potassium Carbon Dioxide Anion Gap BUN Creatinine Est GFR ( Amer) Est GFR (Non-Af Amer) POC Glucose (mg/dL) 288 H Random Glucose Hemoglobin A1c Calcium Total Bilirubin AST ALT Alkaline Phosphatase Total Protein Albumin Globulin Albumin/Globulin Ratio Triglycerides Cholesterol LDL Cholesterol Direct HDL Cholesterol TSH 3rd Generation Venous Blood Potassium Urine Color Audrey Urine Clarity Clear Urine pH 6.0 Ur Specific [place] 1.053 H Urine Protein 30 Urine Glucose (UA) >=500 Urine Ketones Negative Urine Blood Negative Urine Nitrate Negative Urine Bilirubin Negative Urine Urobilinogen 0.2-1.0 Ur Leukocyte Esterase Neg Urine RBC (Auto) 3 Urine Microscopic WBC 1 Ur Squamous Epith Cells 1 Urine Bacteria Hepatitis A IgM Ab Hepatitis A Ab Total Hep Bs Antigen Hep Bs Antibody Hepatitis C Antibody Urine Legionella Ag 03/05/17 03/06/17 03/06/17 20:38 05:31 06:35 WBC 23.0 H RBC 3.64 L Hgb 11.0 L Hct 33.1 L MCV 90.9 MCH 30.1 MCHC 33.2 RDW 14.8 H Plt Count 53 L MPV 9.0 Neut % (Auto) 3.8 L Lymph % (Auto) 91.6 H Wayne % (Auto) 3.1 Eos % (Auto) 0.2 Baso % (Auto) 1.3 Neut # 0.9 L Lymph # 21.1 H Wayne # 0.7 Eos # 0.0 Baso # 0.3 H Smear Path Review ESR pO2 52 VBG pH 7.42 VBG pCO2 40 VBG HCO3 25.7 VBG Total CO2 27.1 VBG O2 Sat (Calc) 92.8 H VBG Base Excess 1.3 VBG Potassium 4.4 Sodium 125.0 L Chloride 95.0 L Glucose 276 H Lactate 1.1 FiO2 21.0 Potassium Carbon Dioxide Anion Gap BUN Creatinine Est GFR ( Amer) Est GFR (Non-Af Amer) POC Glucose (mg/dL) 249 H Random Glucose Hemoglobin A1c Calcium Total Bilirubin AST ALT Alkaline Phosphatase Total Protein Albumin Globulin Albumin/Globulin Ratio Triglycerides Cholesterol LDL Cholesterol Direct HDL Cholesterol TSH 3rd Generation Venous Blood Potassium 4.4 Urine Color Urine Clarity Urine pH Ur Specific [place] Urine Protein Urine Glucose (UA) Urine Ketones Urine Blood Urine Nitrate Urine Bilirubin Urine Urobilinogen Ur Leukocyte Esterase Urine RBC (Auto) Urine Microscopic WBC Ur Squamous Epith Cells Urine Bacteria Hepatitis A IgM Ab Hepatitis A Ab Total Hep Bs Antigen Hep Bs Antibody Hepatitis C Antibody Urine Legionella Ag 03/06/17 03/06/17 03/06/17 06:35 06:35 11:54 WBC RBC Hgb Hct MCV MCH MCHC RDW Plt Count MPV Neut % (Auto) Lymph % (Auto) Wayne % (Auto) Eos % (Auto) Baso % (Auto) Neut # Lymph # Wayne # Eos # Baso # Smear Path Review ESR pO2 VBG pH VBG pCO2 VBG HCO3 VBG Total CO2 VBG O2 Sat (Calc) VBG Base Excess VBG Potassium Sodium 141 Chloride 106 Glucose Lactate FiO2 Potassium 4.1 Carbon Dioxide 28 Anion Gap 12 BUN 12 Creatinine 0.6 L Est GFR ( Amer) > 60 Est GFR (Non-Af Amer) > 60 POC Glucose (mg/dL) 277 H Random Glucose 208 H Hemoglobin A1c 17.1 H Calcium 8.6 Total Bilirubin AST ALT Alkaline Phosphatase Total Protein Albumin Globulin Albumin/Globulin Ratio Triglycerides 219 H Cholesterol 107 LDL Cholesterol Direct 54 HDL Cholesterol 15 L TSH 3rd Generation 5.19 H Venous Blood Potassium Urine Color Urine Clarity Urine pH Ur Specific [place] Urine Protein Urine Glucose (UA) Urine Ketones Urine Blood Urine Nitrate Urine Bilirubin Urine Urobilinogen Ur Leukocyte Esterase Urine RBC (Auto) Urine Microscopic WBC Ur Squamous Epith Cells Urine Bacteria Hepatitis A IgM Ab Hepatitis A Ab Total Hep Bs Antigen Hep Bs Antibody Hepatitis C Antibody Urine Legionella Ag 03/06/17 03/06/17 03/06/17 16:17 16:34 16:34 WBC RBC Hgb Hct MCV MCH MCHC RDW Plt Count MPV Neut % (Auto) Lymph % (Auto) Wayne % (Auto) Eos % (Auto) Baso % (Auto) Neut # Lymph # Wayne # Eos # Baso # Smear Path Review ESR pO2 VBG pH VBG pCO2 VBG HCO3 VBG Total CO2 VBG O2 Sat (Calc) VBG Base Excess VBG Potassium Sodium Chloride Glucose Lactate FiO2 Potassium Carbon Dioxide Anion Gap BUN Creatinine Est GFR ( Amer) Est GFR (Non-Af Amer) POC Glucose (mg/dL) 349 H Random Glucose Hemoglobin A1c Calcium Total Bilirubin AST ALT Alkaline Phosphatase Total Protein Albumin Globulin Albumin/Globulin Ratio Triglycerides Cholesterol LDL Cholesterol Direct HDL Cholesterol TSH 3rd Generation Venous Blood Potassium Urine Color Urine Clarity Urine pH Ur Specific [place] Urine Protein Urine Glucose (UA) Urine Ketones Urine Blood Urine Nitrate Urine Bilirubin Urine Urobilinogen Ur Leukocyte Esterase Urine RBC (Auto) Urine Microscopic WBC Ur Squamous Epith Cells Urine Bacteria Hepatitis A IgM Ab Hepatitis A Ab Total Hep Bs Antigen Negative Hep Bs Antibody Negative Hepatitis C Antibody Negative Urine Legionella Ag 03/06/17 03/06/17 03/06/17 16:34 18:12 18:12 WBC RBC Hgb Hct MCV MCH MCHC RDW Plt Count MPV Neut % (Auto) Lymph % (Auto) Wayne % (Auto) Eos % (Auto) Baso % (Auto) Neut # Lymph # Wayne # Eos # Baso # Smear Path Review ESR pO2 VBG pH VBG pCO2 VBG HCO3 VBG Total CO2 VBG O2 Sat (Calc) VBG Base Excess VBG Potassium Sodium Chloride Glucose Lactate FiO2 Potassium Carbon Dioxide Anion Gap BUN Creatinine Est GFR ( Amer) Est GFR (Non-Af Amer) POC Glucose (mg/dL) Random Glucose Hemoglobin A1c Calcium Total Bilirubin AST ALT Alkaline Phosphatase Total Protein Albumin Globulin Albumin/Globulin Ratio Triglycerides Cholesterol LDL Cholesterol Direct HDL Cholesterol TSH 3rd Generation Venous Blood Potassium Urine Color Yellow Urine Clarity Clear Urine pH 6.0 Ur Specific [place] 1.015 Urine Protein Negative Urine Glucose (UA) >=500 Urine Ketones Negative Urine Blood Negative Urine Nitrate Negative Urine Bilirubin Negative Urine Urobilinogen 0.2-1.0 Ur Leukocyte Esterase Neg Urine RBC (Auto) 1 Urine Microscopic WBC < 1 Ur Squamous Epith Cells 1 Urine Bacteria Few H Hepatitis A IgM Ab Nonreactive Hepatitis A Ab Total Reactive H Hep Bs Antigen Hep Bs Antibody Hepatitis C Antibody Urine Legionella Ag Not detected 03/06/17 03/07/17 03/07/17 21:41 05:00 05:35 WBC 24.8 H RBC 3.77 L Hgb 11.4 L Hct 34.1 L MCV 90.3 MCH 30.2 MCHC 33.4 RDW 14.7 H Plt Count 63 L MPV 8.4 Neut % (Auto) 3.7 L Lymph % (Auto) 94.9 H Wayne % (Auto) 0.6 Eos % (Auto) 0.2 Baso % (Auto) 0.6 Neut # 0.9 L Lymph # 23.5 H Wayne # 0.2 Eos # 0.0 Baso # 0.1 Smear Path Review ESR pO2 VBG pH VBG pCO2 VBG HCO3 VBG Total CO2 VBG O2 Sat (Calc) VBG Base Excess VBG Potassium Sodium Chloride Glucose Lactate FiO2 Potassium Carbon Dioxide Anion Gap BUN Creatinine Est GFR ( Amer) Est GFR (Non-Af Amer) POC Glucose (mg/dL) 248 H 212 H Random Glucose Hemoglobin A1c Calcium Total Bilirubin AST ALT Alkaline Phosphatase Total Protein Albumin Globulin Albumin/Globulin Ratio Triglycerides Cholesterol LDL Cholesterol Direct HDL Cholesterol TSH 3rd Generation Venous Blood Potassium Urine Color Urine Clarity Urine pH Ur Specific [place] Urine Protein Urine Glucose (UA) Urine Ketones Urine Blood Urine Nitrate Urine Bilirubin Urine Urobilinogen Ur Leukocyte Esterase Urine RBC (Auto) Urine Microscopic WBC Ur Squamous Epith Cells Urine Bacteria Hepatitis A IgM Ab Hepatitis A Ab Total Hep Bs Antigen Hep Bs Antibody Hepatitis C Antibody Urine Legionella Ag 03/07/17 03/07/17 03/07/17 10:59 15:59 21:07 WBC RBC Hgb Hct MCV MCH MCHC RDW Plt Count MPV Neut % (Auto) Lymph % (Auto) Wayne % (Auto) Eos % (Auto) Baso % (Auto) Neut # Lymph # Wayne # Eos # Baso # Smear Path Review ESR pO2 VBG pH VBG pCO2 VBG HCO3 VBG Total CO2 VBG O2 Sat (Calc) VBG Base Excess VBG Potassium Sodium Chloride Glucose Lactate FiO2 Potassium Carbon Dioxide Anion Gap BUN Creatinine Est GFR ( Amer) Est GFR (Non-Af Amer) POC Glucose (mg/dL) 253 H 185 H 132 H Random Glucose Hemoglobin A1c Calcium Total Bilirubin AST ALT Alkaline Phosphatase Total Protein Albumin Globulin Albumin/Globulin Ratio Triglycerides Cholesterol LDL Cholesterol Direct HDL Cholesterol TSH 3rd Generation Venous Blood Potassium Urine Color Urine Clarity Urine pH Ur Specific [place] Urine Protein Urine Glucose (UA) Urine Ketones Urine Blood Urine Nitrate Urine Bilirubin Urine Urobilinogen Ur Leukocyte Esterase Urine RBC (Auto) Urine Microscopic WBC Ur Squamous Epith Cells Urine Bacteria Hepatitis A IgM Ab Hepatitis A Ab Total Hep Bs Antigen Hep Bs Antibody Hepatitis C Antibody Urine Legionella Ag 03/07/17 03/08/17 03/08/17 21:35 05:17 05:45 WBC 23.2 H RBC 3.54 L Hgb 10.7 L Hct 32.3 L MCV 91.4 MCH 30.2 MCHC 33.1 RDW 14.9 H Plt Count 53 L MPV 8.6 Neut % (Auto) 3.9 L Lymph % (Auto) 95.3 H Wayne % (Auto) 0.8 Eos % (Auto) 0.0 Baso % (Auto) 0.0 Neut # 0.9 L Lymph # 22.2 H Wayne # 0.2 Eos # 0.0 Baso # 0.0 Smear Path Review ESR 60 H pO2 VBG pH VBG pCO2 VBG HCO3 VBG Total CO2 VBG O2 Sat (Calc) VBG Base Excess VBG Potassium Sodium Chloride Glucose Lactate FiO2 Potassium Carbon Dioxide Anion Gap BUN Creatinine Est GFR ( Amer) Est GFR (Non-Af Amer) POC Glucose (mg/dL) 170 H Random Glucose Hemoglobin A1c Calcium Total Bilirubin AST ALT Alkaline Phosphatase Total Protein Albumin Globulin Albumin/Globulin Ratio Triglycerides Cholesterol LDL Cholesterol Direct HDL Cholesterol TSH 3rd Generation Venous Blood Potassium Urine Color Urine Clarity Urine pH Ur Specific [place] Urine Protein Urine Glucose (UA) Urine Ketones Urine Blood Urine Nitrate Urine Bilirubin Urine Urobilinogen Ur Leukocyte Esterase Urine RBC (Auto) Urine Microscopic WBC Ur Squamous Epith Cells Urine Bacteria Hepatitis A IgM Ab Hepatitis A Ab Total Hep Bs Antigen Hep Bs Antibody Hepatitis C Antibody Urine Legionella Ag 03/08/17 03/08/17 03/08/17 05:45 11:24 16:10 WBC RBC Hgb Hct MCV MCH MCHC RDW Plt Count MPV Neut % (Auto) Lymph % (Auto) Wayne % (Auto) Eos % (Auto) Baso % (Auto) Neut # Lymph # Wayne # Eos # Baso # Smear Path Review ESR pO2 VBG pH VBG pCO2 VBG HCO3 VBG Total CO2 VBG O2 Sat (Calc) VBG Base Excess VBG Potassium Sodium 138 Chloride 103 Glucose Lactate FiO2 Potassium 4.1 Carbon Dioxide 27 Anion Gap 12 BUN 11 Creatinine 0.7 L Est GFR ( Amer) > 60 Est GFR (Non-Af Amer) > 60 POC Glucose (mg/dL) 201 H 130 H Random Glucose 170 H Hemoglobin A1c Calcium 9.2 Total Bilirubin 0.4 AST 58 ALT 111 H D Alkaline Phosphatase 75 Total Protein 6.1 L Albumin 3.1 L Globulin 3.0 Albumin/Globulin Ratio 1.0 Triglycerides Cholesterol LDL Cholesterol Direct HDL Cholesterol TSH 3rd Generation Venous Blood Potassium Urine Color Urine Clarity Urine pH Ur Specific [place] Urine Protein Urine Glucose (UA) Urine Ketones Urine Blood Urine Nitrate Urine Bilirubin Urine Urobilinogen Ur Leukocyte Esterase Urine RBC (Auto) Urine Microscopic WBC Ur Squamous Epith Cells Urine Bacteria Hepatitis A IgM Ab Hepatitis A Ab Total Hep Bs Antigen Hep Bs Antibody Hepatitis C Antibody Urine Legionella Ag Microbiology 03/05/17 16:20 Blood Blood Culture - Preliminary NO GROWTH AFTER 3 DAYS 03/05/17 16:50 Blood Blood Culture - Preliminary NO GROWTH AFTER 3 DAYS 03/06/17 18:30 Blood-Venous Blood Culture - Preliminary NO GROWTH AFTER 24 HOURS 03/06/17 18:30 Blood-Venous Blood Culture - Preliminary NO GROWTH AFTER 24 HOURS 03/06/17 18:12 Urine,Clean Catch Urine Culture - Final No Growth (<1,000 CFU/ML) Accession No. : [id number] Patient Name / ID : YOHANNES HART / [id number] Exam Date : 03/08/2017 13:36:55 ( Approved ) Study Comment : Sex / Age : M / 31Y Creator : Nicky Campos MD Dictator : Nicky Campos MD [employer] Worker : Tax Processor : Nicky Campos MD Approver2 : Report Date : 03/08/2017 14:19:47 My Comment : CT chest and abdomen without IV contrast Indication: Lymphocytosis Technique: Contiguous axial images were obtained through the chest and abdomen without intravenous contrast enhancement. Sagittal and coronal reconstructions were generated and reviewed. This CT exam was performed using 1 or more of the falling dose reduction techniques: Automated exposure control, adjustment of the MAA and/or kV according to patient size, and/or use of iterative reconstruction technique. Radiation dose (DLP): 1182.95 MGy-cm. Comparison: Chest x-ray performed 03/05/17 Findings: Visualized portions of the inferior thyroid gland appear unremarkable. The unenhanced mediastinal and hilar vascular structures appear grossly unremarkable. The heart appears within normal limits of size. No focal consolidation. No pleural effusion. No pneumothorax. 3 mm calcified granuloma, right middle lobe. 5 mm left lower lobe pulmonary nodule (series 3, image 75). Nonspecific prominent bilateral axillary lymph nodes, nonspecific. Scattered lymph nodes evident within the included portions lower neck as well as mediastinum/prevascular region. Please note lack of IV contrast limits evaluation for adenopathy, in particular hilar adenopathy. 12 mm right peritracheal lymph node contains punctate calcifications, indeterminate (series 2, image 32). Prominent sub cm mesenteric and retroperitoneal lymph nodes, nonspecific. Hepatomegaly. Hypoattenuation of the liver compatible with hepatic steatosis. Suspected focal fatty sparing adjacent to the gallbladder fossa. Decompressed gallbladder limits evaluation. Borderline splenomegaly. The kidneys, pancreas, and adrenal glands appear unremarkable. The stomach is nondistended. The included upper bowel loops appear within normal limits of caliber without evidence of intestinal obstruction. There is no definite free air. Bilateral L5 spondylolysis. Endplate sclerosis and vacuum disc phenomenon at L5- S1. Impression: 5 mm left lower lobe pulmonary nodule. Guidelines by the Fleischner society ( radiology 2005; 237:395-400) suggests that in patients with low risk for lung cancer, nodules from 5 mm to 6 mm in diameter should have follow-up in approximately 12 months. In patients with high-risk, such as those were smokers , follow-up is recommended in 6 months. Patients with a known malignancy or risk for metastases should receive 3 month follow-up. Nonspecific prominent bilateral axillary lymph nodes, nonspecific. Scattered lymph nodes evident within the included portions lower neck as well as mediastinum/prevascular region. Please note lack of IV contrast limits evaluation for adenopathy, in particular hilar adenopathy. 12 mm right peritracheal lymph node contains punctate calcifications, indeterminate. Prominent sub cm mesenteric and retroperitoneal lymph nodes, nonspecific. Hepatomegaly. Hypoattenuation of the liver compatible with hepatic steatosis. Suspected focal fatty sparing adjacent to the gallbladder fossa. Decompressed gallbladder limits evaluation. Borderline splenomegaly. Assessment and Plan (1) Leukocytosis Status: Acute (2) New onset type 2 diabetes mellitus Status: Acute (3) Thrombocytopenia Status: Acute (4) Splenomegaly Status: Acute (5) Hepatomegaly Status: Acute (6) Lymphadenopathy Status: Acute - Assessment and Plan (Free Text) Assessment: A/P- 31 year old obese male with no pmh presented with bodyches, fever and leukocytosis. afebrile continues to have leukocytosis with predominantly lymphocytois along with thrombocytopenia as well CXR- reported negative and lung exam was fine abd US- reported as fatty liver with hepatomegaly and splenomegaly. ECHO- no vegetations as per parking meter attendant's report blood cx- neg x 4 urine cx- neg HCV ab- neg Hbs Ag- neg ct chest and abd with extensive lymphadenopathy as per rport and splenomegaly. plan- no need for continuation of empiric abx as there is no infectious sorce at this time and lymphocytosis is predominantly lymphocytosis and hence malignancy should be ruled out. will need BM Bx. await peripheral blood flow cytometry result as ordered by microsoft application developer. all above d/w patient and he verbalizes full understanding of all above.
[2017-03-09 07:41] LABS: INR 1.1 (0.9-1.2); PARTIAL THROMBOPLASTIN TIME 32.2 Seconds (25.6-37.1); PROTHROMBIN TIME 12.3 Seconds (9.8-13.1)
[2017-03-09] MEDS: Insulin Lispro (humaLOG) 100 Units/ml Inj SC SCH ×2 (07:47→11:33)
[2017-03-09 08:45] VITALS: BP 138/89; PULSE 89; RESP 18; TEMP 98.6; O2SAT 95
[2017-03-09 10:05] LABS: EOS % 0.1 % (0.0-4.0); HEMOGLOBIN 11.1 g/dL (12.0-18.0); LYMPH # 19.4 K/uL (1.0-4.3); LYMPH % 94.9 % (20.0-40.0); MEAN CELL VOLUME 90.7 fl (80.0-94.0); MEAN CORPUSCULAR HEMOGLOBIN 29.5 pg (27.0-31.0); MEAN CORPUSCULAR HGB CONC 32.6 g/dL (33.0-37.0); MEAN PLATELET VOLUME 8.7 fl (7.2-11.7); MONO # 0.1 K/uL (0.0-0.8); MONO % 0.7 % (0.0-10.0); NEUT # 0.9 K/uL (1.8-7.0); NEUT % 4.3 % (50.0-75.0); NRBC % 0.8 % (0.0-0.0); PLATELET COUNT 53 K/uL (130-400); RBC 3.75 Mil/uL (4.40-5.90); RED CELL DISTRIBUTION WIDTH 14.9 % (11.5-14.5); WHITE BLOOD COUNT 20.4 K/uL (4.8-10.8)
--- NOTE | 2017-03-09 11:18 | CP.PCM.DIS ---
Provider - Provider Date of Admission: 03/05/17 18:14 Attending physician: Rashawn Gracia MD Consults: Dr Billie Núñez Time Spent in preparation of Discharge (in minutes): 35 Diagnosis - Discharge Diagnosis (1) Sepsis Status: Resolved Comment: Has been afebrile since admission. Lactic acid dropped down to normal range. (2) Leukocytosis Status: Acute Comment: lymphocytosis predominance. flow cytometry - pending. will need BM biopsy. follow up with [facility] and Dr Wise (3) New onset type 2 diabetes mellitus Status: Acute Comment: BS relatively controlled. continue Glipizide and Metformin. follow up in [facility] Hospital Course - Lab Results Lab Results: Micro Results 03/06/17 18:30 Blood-Venous Blood Culture - Preliminary NO GROWTH AFTER 48 HOURS 03/06/17 18:30 Blood-Venous Blood Culture - Preliminary NO GROWTH AFTER 48 HOURS 03/06/17 18:12 Urine,Clean Catch Urine Culture - Final No Growth (<1,000 CFU/ML) Most Recent Lab Values WBC 20.4 K/uL (4.8-10.8) H 03/09/17 09:00 RBC 3.75 Mil/uL (4.40-5.90) L 03/09/17 09:00 Hgb 11.1 g/dL (12.0-18.0) L 03/09/17 09:00 Hct 34.0 % (35.0-51.0) L 03/09/17 09:00 MCV 90.7 fl (80.0-94.0) 03/09/17 09:00 MCH 29.5 pg (27.0-31.0) 03/09/17 09:00 MCHC 32.6 g/dL (33.0-37.0) L 03/09/17 09:00 RDW 14.9 % (11.5-14.5) H 03/09/17 09:00 Plt Count 53 K/uL (130-400) L 03/09/17 09:00 MPV 8.7 fl (7.2-11.7) 03/09/17 09:00 Neut % (Auto) 4.3 % (50.0-75.0) L 03/09/17 09:00 Lymph % (Auto) 94.9 % (20.0-40.0) H 03/09/17 09:00 [place] % (Auto) 0.7 % (0.0-10.0) 03/09/17 09:00 Eos % (Auto) 0.1 % (0.0-4.0) 03/09/17 09:00 Baso % (Auto) 0.0 % (0.0-2.0) 03/09/17 09:00 Neut # 0.9 K/uL (1.8-7.0) L 03/09/17 09:00 Lymph # 19.4 K/uL (1.0-4.3) H 03/09/17 09:00 [place] # 0.1 K/uL (0.0-0.8) 03/09/17 09:00 Eos # 0.0 K/uL (0.0-0.7) 03/09/17 09:00 Baso # 0.0 K/uL (0.0-0.2) 03/09/17 09:00 Neutrophils % (Manual) 5 % (42-75) L 03/05/17 16:20 Lymphocytes % (Manual) 63 % (20-50) H 03/05/17 16:20 Reactive Lymphs % 30 % (0-0) H 03/05/17 16:20 Monocytes % (Manual) 2 % (0-10) 03/05/17 16:20 Smudge Cells Present 03/05/17 16:20 Platelet Estimate Markedly decreased (NORMAL) L 03/05/17 16:20 Polychromasia Slight 03/05/17 16:20 Anisocytosis (manual) Slight 03/05/17 16:20 Smear Path Review 03/05/17 16:20 ESR 60 mm/hr (0-15) H 03/07/17 21:35 Retic Count 1.7 % (0.5-1.5) H 03/09/17 05:30 PT 12.3 Seconds (9.8-13.1) 03/09/17 05:30 INR 1.1 (0.9-1.2) 03/09/17 05:30 APTT 32.2 Seconds (25.6-37.1) 03/09/17 05:30 pCO2 38 mm/Hg (35-45) 03/05/17 17:50 pO2 52 mm/Hg (30-55) 03/05/17 20:38 HCO3 27.2 mmol/L (21-28) 03/05/17 17:50 ABG pH 7.46 (7.35-7.45) H 03/05/17 17:50 ABG Total CO2 28.2 mmol/L (22-28) H 03/05/17 17:50 ABG O2 Saturation 98.4 % (95-98) H 03/05/17 17:50 ABG O2 Content 14.5 ML/dL (15-23) L 03/05/17 17:50 ABG Base Excess 3.0 mmol/L (-2.0-3.0) 03/05/17 17:50 ABG Hemoglobin 10.8 g/dL (11.7-17.4) L 03/05/17 17:50 ABG Carboxyhemoglobin 2.0 % (0.5-1.5) H 03/05/17 17:50 POC ABG HHb (Measured) 1.5 % (0.0-5.0) 03/05/17 17:50 ABG Methemoglobin 1.5 % (0.0-3.0) 03/05/17 17:50 ABG O2 Capacity 14.7 mL/dL (16-24) L 03/05/17 17:50 Constantino Test Yes 03/05/17 17:50 VBG pH 7.42 (7.32-7.43) 03/05/17 20:38 VBG pCO2 40 mmHg (40-60) 03/05/17 20:38 VBG HCO3 25.7 mmol/L 03/05/17 20:38 VBG Total CO2 27.1 mmol/L (22-28) 03/05/17 20:38 VBG O2 Sat (Calc) 92.8 % (40-65) H 03/05/17 20:38 VBG Base Excess 1.3 mmol/L (0.0-2.0) 03/05/17 20:38 VBG Potassium 4.4 mmol/L (3.6-5.2) 03/05/17 20:38 A-a O2 Difference 26.0 mm/Hg 03/05/17 17:50 Hgb O2 Saturation 95.0 % (95.0-98.0) 03/05/17 17:50 Sodium 125.0 mmol/L (132-148) L 03/05/17 20:38 Chloride 95.0 mmol/L (98-107) L 03/05/17 20:38 Glucose 276 mg/dL (75-110) H 03/05/17 20:38 Lactate 1.1 mmol/L (0.7-2.1) 03/05/17 20:38 FiO2 21.0 % 03/05/17 20:38 Crit Value Called To Dr camacho 03/05/17 17:00 Crit Value Called By Rt 03/05/17 17:00 Crit Value Read Back Y 03/05/17 17:00 Blood Gas Notified Time 1714 03/05/17 17:00 Sodium 138 mmol/l (132-148) 03/08/17 05:45 Potassium 4.1 MMOL/L (3.6-5.0) 03/08/17 05:45 Chloride 103 mmol/L (98-107) 03/08/17 05:45 Carbon Dioxide 27 mmol/L (22-30) 03/08/17 05:45 Anion Gap 12 (10-20) 03/08/17 05:45 BUN 11 mg/dl (9-20) 03/08/17 05:45 Creatinine 0.7 mg/dL (0.8-1.5) L 03/08/17 05:45 Est GFR ( Amer) > 60 03/08/17 05:45 Est GFR (Non-Af Amer) > 60 03/08/17 05:45 POC Glucose (mg/dL) 198 mg/dL (65-110) H 03/09/17 10:42 Random Glucose 170 mg/dL (75-110) H 03/08/17 05:45 Hemoglobin A1c 17.1 % (4.2-6.5) H 03/06/17 06:35 Calcium 9.2 mg/dL (8.4-10.2) 03/08/17 05:45 Ferritin 725.0 ng/mL 03/09/17 05:30 Total Bilirubin 0.4 mg/dl (0.2-1.3) 03/08/17 05:45 AST 58 U/L (17-59) 03/08/17 05:45 ALT 111 U/L (21-72) H D 03/08/17 05:45 Alkaline Phosphatase 75 U/L (38-126) 03/08/17 05:45 Total Protein 6.1 G/DL (6.3-8.2) L 03/08/17 05:45 Albumin 3.1 g/dL (3.5-5.0) L 03/08/17 05:45 Globulin 3.0 gm/dL (2.2-3.9) 03/08/17 05:45 Albumin/Globulin Ratio 1.0 (1.0-2.1) 03/08/17 05:45 Triglycerides 219 mg/DL (0-149) H 03/06/17 06:35 Cholesterol 107 mg/dL (0-199) 03/06/17 06:35 LDL Cholesterol Direct 54 mg/dL (0-129) 03/06/17 06:35 HDL Cholesterol 15 MG/DL (30-70) L 03/06/17 06:35 Vitamin B12 440 pg/mL (239-931) 03/09/17 05:30 TSH 3rd Generation 5.19 mIU/ML (0.46-4.68) H 03/06/17 06:35 Venous Blood Potassium 4.4 mmol/L (3.6-5.2) 03/05/17 20:38 Urine Color Yellow (YELLOW) 03/06/17 18:12 Urine Clarity Clear (Clear) 03/06/17 18:12 Urine pH 6.0 (5.0-8.0) 03/06/17 18:12 Ur Specific [place] 1.015 (1.003-1.030) 03/06/17 18:12 Urine Protein Negative mg/dL (NEGATIVE) 03/06/17 18:12 Urine Glucose (UA) >=500 mg/dL (Normal) 03/06/17 18:12 Urine Ketones Negative mg/dL (NEGATIVE) 03/06/17 18:12 Urine Blood Negative (NEGATIVE) 03/06/17 18:12 Urine Nitrate Negative (NEGATIVE) 03/06/17 18:12 Urine Bilirubin Negative (NEGATIVE) 03/06/17 18:12 Urine Urobilinogen 0.2-1.0 mg/dL (0.2-1.0) 03/06/17 18:12 Ur Leukocyte Esterase Neg Alicia/uL (Negative) 03/06/17 18:12 Urine RBC (Auto) 1 /hpf (0-3) 03/06/17 18:12 Urine Microscopic WBC < 1 /hpf (0-5) 03/06/17 18:12 Ur Squamous Epith Cells 1 /hpf (0-5) 03/06/17 18:12 Urine Bacteria Few (<OCC) H 03/06/17 18:12 Hepatitis A IgM Ab Nonreactive (Nonreactive) 03/06/17 16:34 Hepatitis A Ab Total Reactive (Nonreactive) H 03/06/17 16:34 Hep Bs Antigen Negative (NEGATIVE) 03/06/17 16:34 Hep Bs Antibody Negative (NEGATIVE) 03/06/17 16:34 Hepatitis C Antibody Negative (NEGATIVE) 03/06/17 16:34 Influenza Typ A,B (EIA) Negative for flu a/b (NEGATIVE) 03/05/17 16:27 Urine Legionella Ag Not detected (Not Detected) 03/06/17 18:12 Mycoplasma pneumon IgM 52 U/mL (<770) 03/06/17 05:30 - Hospital Course Hospital Course: 31 yo male with no significant PMH came in because of on and off fever for 3 weeks ago accompanied with body malaise and coughing. Patient was admitted and diagnosed with Sepsis with pneumonia or bronchitis as probable cause. He was started with Rocephin and Zythromax. Patient felt better and fever had not recur however his WBC remained elevated with predominance of lymphocytes. CT scan of the chest revealed multiple lymphadenopathy and hepatosplenomegaly. Blood flood cytometry was done but remained pending as it was a sent out. ID and Hematology were consulted. Dr Núñez recommended to stop antibiotics as leukocytosis was not due to infection. Dr Wise agreed and recommended BM biopsy as outpatient. He will be referred to [facility] who will in turn call for consult with Dr Wise. Patient was also found to have new onset diabetes and was managed with Glipizide and Metformin. His BS was relatively controlled and stable during discharge. Discharge Exam - Head Exam Head Exam: ATRAUMATIC - Eye Exam Eye Exam: absent: Scleral icterus - ENT Exam ENT Exam: Mucous Membranes Moist - Respiratory Exam Respiratory Exam: NORMAL BREATHING PATTERN. absent: Wheezes, Respiratory Distress - Cardiovascular Exam Cardiovascular Exam: REGULAR RHYTHM, +S1, +S2 - GI/Abdominal Exam GI & Abdominal Exam: Soft. absent: Tenderness - Rectal Exam Rectal Exam: Deferred - Neurological Exam Neurological exam: Alert, Oriented x3 - Psychiatric Exam Psychiatric exam: Normal Affect - Skin Skin Exam: Dry, Intact Discharge Plan - Discharge Medications Prescriptions: GlipiZIDE [Glucotrol] 30 mg PO DAILY #30 tab MetFORMIN [glucoPHAGE] 1,000 mg PO BID #60 tab - Follow Up Plan Condition: FAIR Disposition: HOME/ ROUTINE Instructions: Metformin (By mouth), Diabetes Mellitus Type 2 in Adults (DC) Additional Instructions: follow up in [facility] in one week and request hematology consult with Dr Wise
[2017-03-09 13:03] LABS: HEPATITIS B SURFACE AG NEGATIVE (NEGATIVE)
[2017-03-09 13:09] LABS: HEPATITIS A IGM NEGATIVE (NEGATIVE); HEPATITIS B CORE AB NEGATIVE (NEGATIVE)
[2017-03-09 13:21] LABS: HEPATITIS C ANTIBODY NEGATIVE (NEGATIVE)
[2017-03-09 13:46] LABS: FOLATE 12.1 ng/mL
[2017-03-09 17:31] LABS: LYMPHOCYTE 79 % (20-50); MONOCYTE 8 % (0-10); NEUTROPHIL 7 % (42-75); PLATELET ESTIMATE MARKEDLY DECREASED (NORMAL); REACTIVE LYMPHOCYTES 6 % (0-0); TOTAL CELLS COUNTED 100
[2017-03-09 17:35] LABS: NUCLEATED RED BLOOD CELL 1 % (0-0)
== END 2017-03-09 13:47 | disposition home or self-care (01) | DRG 901 ==
LOC: H.ER 15:48 → H.ERHOLD 18:14 → H.TEL 23:01 → H.MEDSURG1 03-08 18:57
DX: A41.9 Sepsis, unspecified organism (principal); D69.6 Thrombocytopenia, unspecified; K76.0 Fatty (change of) liver, not elsewhere classified; D64.9 Anemia, unspecified; E11.9 Type 2 diabetes mellitus without complications; E66.9 Obesity, unspecified; D72.820 Lymphocytosis (symptomatic); Z83.3 Family history of diabetes mellitus; J20.9 Acute bronchitis, unspecified; R59.9 Enlarged lymph nodes, unspecified

== ENCOUNTER 2017-03-14 11:46 | Emergency (ER) | payer OTHER ==
[2017-03-14 11:51] VITALS: BMI 40.2
--- NOTE | 2017-03-14 12:48 | ED PDOC ---
Lower Extremity Pain/Injury Time Seen by Provider: 03/14/17 11:50 Chief Complaint (Nursing): Lower Extremity Problem/Injury Chief Complaint (Provider): left calf pain History Per: Patient History/Exam Limitations: no limitations Onset/Duration Of Symptoms: Days (x 1) Additional Complaint(s): Yusef Doshi is a 31 year old male, with a previous medical history of diabetes and sepsis, who was sent to the ED by the clinic for further evaluation of left calf pain ongoing for 1 day. Patient denies any trauma, recent travel, shortness of breath or chest pain. PMD: [facility] Past Medical History Reviewed: Historical Data, Nursing Documentation, Vital Signs Vital Signs: Last Vital Signs Temp 99 F 03/14/17 11:50 Pulse 110 H 03/14/17 11:50 Resp BP 144/84 03/14/17 11:50 Pulse Ox 96 03/14/17 11:50 - Medical History PMH: Diabetes, Pneumonia Denies: Chronic Kidney Disease - Surgical History Surgical History: No Surg Hx - Family History Family History: States: Unknown Family Hx - Social History Current smoker - smoking cessation education provided: No Alcohol: None Drugs: Denies - Home Medications Home Medications: Ambulatory Orders Medication Instructions Recorded GlipiZIDE [Glucotrol] 30 mg PO DAILY #30 tab 03/09/17 MetFORMIN [glucoPHAGE] 1,000 mg PO BID #60 tab 03/09/17 Vitamin B Complex [Super B-50 1 cap PO DAILY 03/14/17 Complex] - Allergies Allergies/Adverse Reactions: Allergies Allergy/AdvReac Type Severity Reaction Status Date / Time No Known Allergies Allergy Verified 03/05/17 15:57 Review of Systems ROS Statement: Except As Marked, All Systems Reviewed And Found Negative Cardiovascular: Negative for: Chest Pain Respiratory: Negative for: Shortness of Breath Musculoskeletal: Positive for: Leg Pain (left calf) Physical Exam - Reviewed Nursing Documentation Reviewed: Yes Vital Signs Reviewed: Yes - Physical Exam Appears: Positive for: Well, Non-toxic, No Acute Distress Head Exam: Positive for: ATRAUMATIC, NORMAL INSPECTION, NORMOCEPHALIC Skin: Positive for: Normal Color, Warm, DRY Eye Exam: Positive for: EOMI, Normal appearance, PERRL ENT: Positive for: Normal ENT Inspection Neck: Positive for: Normal, Painless ROM Cardiovascular/Chest: Positive for: Regular Rate, Rhythm Respiratory: Positive for: CNT, Normal Breath Sounds Pulses-Dorsalis Pedis (L): 2+ Pulses-Dorsalis Pedis (R): 2+ Gastrointestinal/Abdominal: Positive for: Normal Exam, Bowel Sounds, Soft. Negative for: Tenderness Back: Positive for: Normal Inspection Extremity: Positive for: Normal ROM, Capillary Refill (< 2 seconds ), Other ( neurovascularly intact). Negative for: Tenderness, Pedal Edema, Calf Tenderness , Deformity, Swelling Neurologic/Psych: Positive for: Alert, Oriented. Negative for: Motor/Sensory Deficits - Laboratory Results Result Diagrams: 03/14/17 12:30 03/14/17 12:30 - ECG O2 Sat by Pulse Oximetry: 96 (RA) Pulse Ox Interpretation: Normal Medical Decision Making Medical Decision Making: Initial Impression: Left calf pain r/o DVt Initial Plan: * labs * D-dimer * PT * US duplex lower extremity * reevaluation duplex shows no DVT lympadenopathy 14:14 Upon re-evaluation, patient reports improved condition. However, given that his labs show elevated WBC, compared to prior labs, is slightly elevated. also thrombocytopenia notred. however that was present previously. Discussed case with pts oncologist Dr Wise who states that pt just got diagnosis of leukemia yesterday and needs to follow up with a large academic center such as [facility] for further treatment for this condition. apparently he explained this to the patient yesterday but pt didnt completely understand. pt now understands and has copies of the paperwork from Dr Wise indicating the tests done a few days ago and the results and he is supposed to bring them to [place] for follow up. explained all that to patient, and need for pt to follow up accordingly. pt understands and will follow up with [place] upon dc from the hospital now. pt denies any complaints/pain. Scribe Attestation: Documented by Kimberly Suarez, acting as a scribe for Garo Mccarthy MD. Provider Scribe Attestation: All medical record entries made by the Scribe were at my direction and personally dictated by me. I have reviewed the chart and agree that the record accurately reflects my personal performance of the history, physical exam, medical decision making, and the department course for this patient. I have also personally directed, reviewed, and agree with the discharge instructions and disposition. Disposition - Clinical Impression Clinical Impression: Leg pain, Leukemia - Patient ED Disposition Is Patient to be Admitted: No Counseled Patient/Family Regarding: Studies Performed, Diagnosis, Need For Followup - Disposition Referrals: Carlos Wise MD [Staff Provider] - Disposition Time: 13:00 Condition: IMPROVED Additional Instructions: follow up with [facility] today if you cant follow up there then go to Dr Wise office bring copy of results return to the ED with any worsening or concerning symptoms Instructions: Leg Pain (ED) Forms: [employer] (Paraguayan)
[2017-03-14 12:51] LABS: EOS % 0.1 % (0.0-4.0); HEMOGLOBIN 11.4 g/dL (12.0-18.0); LYMPH # 29.7 K/uL (1.0-4.3); LYMPH % 96.2 % (20.0-40.0); MEAN CELL VOLUME 91.1 fl (80.0-94.0); MEAN CORPUSCULAR HEMOGLOBIN 30.7 pg (27.0-31.0); MEAN CORPUSCULAR HGB CONC 33.7 g/dL (33.0-37.0); MEAN PLATELET VOLUME 9.9 fl (7.2-11.7); MONO # 0.2 K/uL (0.0-0.8); MONO % 0.8 % (0.0-10.0); NEUT # 0.9 K/uL (1.8-7.0); NEUT % 2.9 % (50.0-75.0); NRBC % 0.3 % (0.0-0.0); RBC 3.71 Mil/uL (4.40-5.90); RED CELL DISTRIBUTION WIDTH 15.1 % (11.5-14.5)
[2017-03-14 12:55] LABS: WHITE BLOOD COUNT 30.8 K/uL (4.8-10.8)
[2017-03-14 12:56] LABS: PLATELET COUNT 56 K/uL (130-400)
[2017-03-14 13:00] LABS: ALBUMIN 3.9 g/dL (3.5-5.0); ALT/SGPT 144 U/L (21-72); AST/SGOT 102 U/L (17-59); BLOOD UREA NITROGEN 15 mg/dl (9-20); CALCIUM 9.3 mg/dL (8.4-10.2); GFR AFRICAN-AMERICAN > 60; GFR NON-AFRICAN AMERICAN > 60
[2017-03-14 13:12] LABS: INR 1.3 (0.9-1.2); PROTHROMBIN TIME 14.7 Seconds (9.8-13.1)
[2017-03-14 13:30] LABS: ANISOCYTOSIS SLIGHT; BANDS 1 % (0-2); BLASTS 30 % (0-0); LARGE PLATELETS PRESENT; LYMPHOCYTE 62 % (20-50); MONOCYTE 1 % (0-10); NEUTROPHIL 5 % (42-75); PLATELET ESTIMATE DECREASED (NORMAL); REACTIVE LYMPHOCYTES 1 % (0-0); TOTAL CELLS COUNTED 100
--- NOTE | 2017-03-14 13:32 | US ---
HISTORY: pain ro clot . PRIORS: None. FINDINGS: 2-D, color and duplex Doppler analysis of the lower extremity venous circulation using routine protocol from the femoral veins through the popliteal veins. Venous compressibility: Normal. Flow and augmentation patterns: Normal. Visualized veins upper third of calf: Normal. Esteban cyst: None. There are enlarged lymph nodes in the left inguinal region, the largest measuring 3.7 cm in greatest dimension. IMPRESSION: No sonographic or Doppler evidence for DVT in left lower extremity. Left inguinal lymphadenopathy noted.
[2017-03-14 15:00] VITALS: BP 134/79; PULSE 98; RESP 18; TEMP 99.1
[2017-03-14 17:06] VITALS: O2SAT 96
== END 2017-03-14 15:15 | disposition home or self-care (01) ==
LOC: H.ER 11:46
DX: E11.65 Type 2 diabetes mellitus with hyperglycemia (principal); C95.90 Leukemia, unspecified not having achieved remission; Z79.84 Long term (current) use of oral hypoglycemic drugs